=== PATIENT | female | born 1980 | race Caucasian/White ===

== ENCOUNTER 2017-11-18 11:07 | Emergency (ER) | payer MEDICAID, SELFPAY ==
[2017-11-18 11:08] VITALS: BP 112/64; PULSE 70; RESP 16; TEMP 36.8; O2SAT 100; BMI 25.1
--- NOTE | 2017-11-18 12:25 | US_ITS ---
STUDY: FIRST TRIMESTER OBSTETRICAL ULTRASOUND REASON FOR EXAM: Female, 37 years old. Cramping. LMP: October 06, 2017. TECHNIQUE: Transvaginal PRIOR ULTRASOUND: None. FINDINGS: There is visualization of a single gestational sac in a normal intrauterine position. The gestational sac shape is within normal limits. There is a visualized yolk sac. The yolk sac measures 3 mm. The placenta is non-visualized. Irregular sonolucency along the inferior margin of the gestational sac consistent with a small subchorionic hemorrhage. There is visualization of a live embryo. The crown-rump length (CRL) measures 1.6 cm, indicating an estimated gestational age (EGA) of 8 weeks, 0 days. There is demonstrated cardiac activity with a heart rate of 164 bpm. The estimated gestation age (EGA) by LMP is 6 weeks, 1 days. The estimated date of delivery (ANGELITO) by LMP is July 13, 2018. The estimated gestation age (EGA) by US is 8 weeks, 0 days. The estimated date of delivery (ANGELITO) by US is June 30, 2018. The anteverted uterus measures 10.2 x 7.6 x 5.9 cm. There is no demonstrated uterine fibroid. The cervix is closed. The right ovary measures 2.6 x 1.9 x 1.8 cm. There is no right ovarian cyst. There is no visualized right adnexal mass or complex lesion. The left ovary measures 2.3 x 2.7 x 1.7 cm. There is no left ovarian cyst. There is no visualized left adnexal mass or complex lesion. There is no fluid in the cul de sac. US/Transvaginal w/Preg US IMPRESSION: 1. Single living intrauterine with estimated gestational age of 8 weeks, 0 days. Estimated date of delivery by today's study is June 30, 2018. 2. Small subchorionic hemorrhage at the inferior margin of the gestational sac. 3. The ovaries are unremarkable. Electronically Signed: Geovanny Leyva MD at 13:54 EDT , Service support ,
[2017-11-18 12:42] LABS: Absolute Lymphocyte Count 2.44 X10^3/ul (0.83-4.51); Absolute Neutrophil Count 5.3 X10^3/uL (2.0-7.7); Basophil# 0.04 X10^3/uL; Basophil% 0.5 % (0-1); Eosinophils% 1.2 % (0-5); Hematocrit 38.8 % (37-47); Hemoglobin 12.9 g/dl (12.0-15.0); Lymphocyte # 2.44 X10^3/ul (4.0); Lymphocyte % 28.3 % (19-41); Mean Corp Hgb Conc 33.2 g/gl (32-36); Mean Corpuscular Hgb 29.1 pg (27.0-32.0); Mean Corpuscular Volume 87.6 fL (81-99); Mean Platelet Vol. 8.8 fl (6.2-12.0); Monocyte% 8.1 % (0-10); Neutrophil # 5.32 X10^3/uL (2.7-7.7); Neutrophil % 61.8 % (47-70); POSITIVE COUNT NO; POSITIVE DIFFERENTIAL NO; POSITIVE MORPHOLOGY NO; Platelet Count 270 K/mm3 (150-450); RBC Distribution Width CV 13.5 % (11.6-14.6); RBC Distribution Width SD 43.3 fl (35.1-43.9); Red Blood Count 4.43 M/mm3 (4.2-5.4); White Blood Count 8.6 K/mm3 (4.4-11.0)
[2017-11-18 12:52] LABS: Mucous, Urine 0 SEEN /hpf (<or=2+); Red Blood Cells-Urine 0 SEEN /hpf (0-5)
[2017-11-18] MEDS: 0.9% Normal Saline 1,000 ML 1000 ML IV (12:54)
[2017-11-18 12:56] LABS: Color, Urine Yellow (Yellow); Glucose, Dipstick Normal (Normal); Ketone-Dipstick Negative (Negative); Leukocyte Esterase-Dipstick 25 /ul (Negative); Nitrite-Dipstick Negative (Negative); Occult Blood-Urine Negative /ul (Negative); Protein-Dipstick Negative (Negative); Urine Bilirubin Dipstick Negative (Negative); Urine Clarity Sl. Cloudy (Clear); Urine Urobilinogen Normal (Normal)
[2017-11-18 13:06] LABS: Bacteria 1+ /hpf (None Seen); Squamous Epithelial Cells - UA 5-10 SEEN /hpf (5-10); White Blood Cells 0-5 SEEN /hpf (0-5)
[2017-11-18 13:09] LABS: ALB/GLOB Ratio 0.9 RATIO (0.9-2.4); AST(SGOT) 10 U/L (15-37); Alanine Aminotransfer ALT/SGPT 19 U/L (13-56); Albumin, Serum 3.5 g/dL (3.2-5.0); Alkaline Phosphatase 60 U/L (45-117); Anion Gap 7 (5-15); BUN 6 mg/dL (7-18); BUN/Creat Ratio 13.8 RATIO (10-20); Calcium,Total 8.9 mg/dL (8.5-10.1); Chloride 106 mmol/L (98-107); Creatinine, Serum 0.43 mg/dL (0.55-1.02); EST Glomerular Filtration Rate 173 mL/min (>60); Est Glom Filt Rate - Afr Amer 209 mL/min (>60); Estimated Creatinine Clearance 146.74 ml/min; Globulin 3.7 g/dL (2.2-4.2); Glucose 81 mg/dL (74-106); Potassium 3.8 mmol/L (3.5-5.1); Protein, Total 7.2 g/dL (6.4-8.2); Sodium Level 139 mmol/L (136-145)
--- NOTE | 2017-11-18 14:30 | ED.DCSUM_ITS ---
- ER Visit Summary Date of Service: 11/18/17 Chief Complaint: [ and abdominal pain] History of Present Illness: The patient is a 37 F [who presents the emergency department with 2 days of lower abdominal cramping bilateral. It has been intermittent she has had occasional vomiting for the last few weeks she did have a home test that was positive her last menstrual cycle was October 06, 2017 she is . No vaginal bleeding no dysuria or hematuria she has had some frequency. She has an appointment with Dr. Coelho on December 01] Physical Examination: [] WN WD NAD PERRL EOMI MMM NECK supple and nontender, no masses RRR no murmur rub or gallop, no peripheral edema, symmetric radial pulses CTAB no respiratory distress ABDOMEN is soft mild tenderness in the bilateral pelvis, normal bowel sounds, no distension, no rebound or guarding SKIN is warm and dry no rashes Alert and Oriented x3, CN II-XII in tact, no motor or sensory deficits, gait normal No lymphadenopathy Test Results: [] Emergency Department Course and Treatment: [HCG was 69,000. Urine did not appear infected. Other labs were unremarkable. Ultrasound showed single IUP at 6 weeks and 1 day. There was a small subchorionic hemorrhage. I will place the patient on pelvic rest until she follows up with Dr. Coelho.] Treatment Plan: [] Disposition: ] Impression: [First trimester with subchorionic hemorrhage] This note was generated with [employer] dictation software. It may contain incorrect words, spelling, and punctuation that were not noted in review of the chart prior to signing ED Disposition - Plan for ED Patient: Chief Complaint: Abd Pain Referrals: Orestes Lincoln DO [Primary Care Provider] -
[2017-11-18 14:40] LABS: Chlamydia Trachomatis by PCR Negative (Negative); Neisserai gonorrhoeae by PCR Negative (Negative); Probe Check PASS; Sample Adequacy Control PASS; Specimen Processing Control PASS
--- NOTE | 2017-11-18 14:40 | ED.DEP ---
ED Disposition - Plan for ED Patient: Chief Complaint: Abd Pain Instructions: : Your First Trimester Changes Referrals: Sushil Bautista [STAFF PHYSICIAN] - 3-5 Days Additional Instructions: Pelvic Rest No lifting greater than 10 lbs. No sex until follow up wit hob small subchorionic hemorrhage on ultrasound
== END 2017-11-18 14:56 | disposition home or self-care (01) ==
PROVIDERS: Emergency Provider Emergency Medicine; Family Provider Student in an Organized Health Care Education/Training Program; PCP Student in an Organized Health Care Education/Training Program
DX: O20.9 Hemorrhage in early pregnancy, unspecified (principal); O09.521 Supervision of elderly multigravida, first trimester; O21.9 Vomiting of pregnancy, unspecified; O99.331 Smoking (tobacco) complicating pregnancy, first trimester; Z3A.01 Less than 8 weeks gestation of pregnancy
CPT/HCPCS: 76817; 80053; 81001; 84702; 85025; 87491; 87591; 99283; A4216

== ENCOUNTER 2017-11-29 06:57 | Emergency (ER) | payer MEDICAID, SELFPAY ==
[2017-11-29 06:58] VITALS: BP 130/77; PULSE 85; RESP 18; TEMP 36.5; O2SAT 100; BMI 26.8
--- NOTE | 2017-11-29 07:45 | ED.DCSUM_ITS ---
- ER Visit Summary Date of Service: 11/29/17 Chief Complaint: [] 8 week , persistent intermittent pelvicl cramps History of Present Illness: The patient is a 37 F [] patient is 8 weeks single live IUP by ultrasound on November 18, she has persistent intermittent abdominal cramps in the low pelvic area since onset of . She has had no vomiting no fever normal urinary and bowel habits, no vaginal bleeding she was seen at that time and found to have as above nothing has really changed except the abdominal cramps in the lower pelvic area have persisted this morning she came in for evaluation she is not taking for the pain such as Tylenol she has had no bleeding no urinary symptoms she is no history of ectopic or PID Physical Examination: [] Resting comforting the bed her vital signs are within normal range head neck chest unremarkable abdomen is very soft there is no tenderness rebound guarding organomegaly any area the backs unremarkable upper lower extremity unremarkable her suprapubic area is unremarkable these cramps seem to come and go she absolutely adamantly denies bleeding or discharge we discussed pelvic exam and she deferred the pelvic exam She did have an ultrasound as above that showed single live IUP 8 weeks of explained to the is no indication to repeat an ultrasound, we will check UA Test Results: [] Emergency Department Course and Treatment: [] UA is unremarkable we did review the ultrasound reports as above, explained all the above to her 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 It may contain incorrect words, spelling, and punctuation that were not noted in review of the chart prior to signing ED Disposition - Plan for ED Patient: Chief Complaint: Referrals: Orestes Lincoln DO [Primary Care Provider] -
[2017-11-29 07:55] LABS: Bacteria 0 SEEN /hpf (None Seen); Mucous, Urine 0 SEEN /hpf (<or=2+); Red Blood Cells-Urine 0 SEEN /hpf (0-5); White Blood Cells 0 SEEN /hpf (0-5)
[2017-11-29 08:04] LABS: Color, Urine Yellow (Yellow); Glucose, Dipstick Normal (Normal); Ketone-Dipstick Negative (Negative); Leukocyte Esterase-Dipstick Negative /ul (Negative); Nitrite-Dipstick Negative (Negative); Occult Blood-Urine Negative /ul (Negative); Protein-Dipstick Negative (Negative); Urine Bilirubin Dipstick Negative (Negative); Urine Clarity Clear (Clear); Urine Urobilinogen Normal (Normal); Urine pH 6.5 (5.0 - 8.0)
[2017-11-29 08:11] LABS: Squamous Epithelial Cells - UA 0-5 SEEN /hpf (5-10)
--- NOTE | 2017-11-29 08:34 | ED.DEP ---
ED Disposition - Plan for ED Patient: Chief Complaint: Instructions: ED Miscarriage Poss Referrals: Orestes Lincoln DO [Primary Care Provider] -
== END 2017-11-29 08:44 | disposition home or self-care (01) ==
PROVIDERS: Emergency Provider Emergency Medicine; Family Provider Student in an Organized Health Care Education/Training Program; PCP Student in an Organized Health Care Education/Training Program
DX: O20.0 Threatened abortion (principal); Z3A.08 8 weeks gestation of pregnancy
CPT/HCPCS: 81001; 87077; 87086; 87088; 99282

== ENCOUNTER 2018-02-16 01:10 | Outpatient (CLI) | payer MEDICAID, SELFPAY ==
[2018-02-16 02:08] LABS: Bacteria 0 SEEN /hpf (None Seen); Mucous, Urine 0 SEEN /hpf (<or=2+); Red Blood Cells-Urine 0 SEEN /hpf (0-5); Squamous Epithelial Cells - UA 0 SEEN /hpf (5-10); White Blood Cells 0 SEEN /hpf (0-5)
[2018-02-16 02:09] LABS: Color, Urine Yellow (Yellow); Glucose, Dipstick Normal (Normal); Ketone-Dipstick Negative (Negative); Leukocyte Esterase-Dipstick Negative /ul (Negative); Nitrite-Dipstick Negative (Negative); Occult Blood-Urine Negative /ul (Negative); Protein-Dipstick Negative (Negative); Urine Bilirubin Dipstick Negative (Negative); Urine Clarity Clear (Clear); Urine Urobilinogen Normal (Normal); Urine pH 6.5 (5.0 - 8.0)
[2018-02-16 02:39] VITALS: BMI 28.5
--- NOTE | 2018-02-16 07:58 | OB.TRI.HP_ITS ---
History of Present Illness Reason For Visit: R/O LABOR Allergies No Known Allergies Allergy (Verified 11/29/17 06:58) Laboratory Studies: Laboratory Tests 02/16/18 Range/Units 02:00 Urine Color Yellow (Yellow) Urine Clarity Clear (Clear) Urine pH 6.5 (5.0 - 8.0) Ur Specific [place] 1.010 (1.002-1.030) Urine Protein Negative (Negative) mg/dl Urine Glucose (UA) Normal (Normal) mg/dl Urine Ketones Negative (Negative) mg/dl Urine Occult Blood Negative (Negative) /ul Urine Nitrite Negative (Negative) Urine Bilirubin Negative (Negative) mg/dL Urine Urobilinogen Normal (Normal) mg/dl Ur Leukocyte Esterase Negative (Negative) /ul Urine RBC 0 SEEN (0-5) /hpf Urine WBC 0 SEEN (0-5) /hpf Ur Squamous Epith Cells 0 SEEN (5-10) /hpf Urine Bacteria 0 SEEN (None Seen) /hpf Urine Mucus 0 SEEN (<or=2+) /hpf NST - FHR Rate Baby A Baseline: 130S Variability:: Minimal NST Reactive:: Appropriate for gestational age Uterine Activity:: IRREGULAR Impression/Plan 37YO @ @ 20 WEEKS R/O LABOR - FALSE LABOR 1) CERVICAL EXAM- CLOSED 2) CONTRACTIONS RESOLVED AFTER PO HYDRATION 3) DC HOME
== END 2018-02-16 04:00 | disposition home or self-care (01) ==
LOC: WPOUT 01:41 → WP 01:41
PROVIDERS: Family Provider Student in an Organized Health Care Education/Training Program; PCP Student in an Organized Health Care Education/Training Program; Visit Provider Obstetrics & Gynecology
DX: O09.522 Supervision of elderly multigravida, second trimester (principal); Z3A.20 20 weeks gestation of pregnancy
CPT/HCPCS: 59025; 59050; 81001; 99218; G0378

== ENCOUNTER 2018-03-28 23:20 | Outpatient (CLI) | payer MEDICAID, SELFPAY ==
[2018-03-28 23:35] VITALS: BMI 28.1
[2018-03-29 00:24] LABS: Color, Urine Yellow (Yellow); Glucose, Dipstick Normal (Normal); Ketone-Dipstick 5 mg/dl (Negative); Leukocyte Esterase-Dipstick 25 /ul (Negative); Nitrite-Dipstick Negative (Negative); Occult Blood-Urine 25 /ul (Negative); Protein-Dipstick Negative (Negative); Urine Bilirubin Dipstick Negative (Negative); Urine Clarity Sl. Cloudy (Clear); Urine Urobilinogen Normal (Normal)
[2018-03-29] MEDS: Lactated Ringers 1,000 ML 999 ML IV (00:57)
[2018-03-29] MEDS: Acetaminophen 500 MG Tablet 1000 MG PO (00:57)
[2018-03-29 01:04] LABS: Absolute Lymphocyte Count 3.09 X10^3/ul (0.83-4.51); Absolute Neutrophil Count 9.9 X10^3/uL (2.0-7.7); Basophil# 0.04 X10^3/uL; Basophil% 0.3 % (0-1); Eosinophils% 2.7 % (0-5); Hematocrit 35.2 % (37-47); Hemoglobin 12.1 g/dl (12.0-15.0); Lymphocyte # 3.09 X10^3/ul (4.0); Mean Corp Hgb Conc 34.4 g/gl (32-36); Mean Corpuscular Hgb 31.3 pg (27.0-32.0); Mean Corpuscular Volume 91.2 fL (81-99); Mean Platelet Vol. 8.8 fl (6.2-12.0); Monocyte# 1.12 X10^3/uL; Monocyte% 7.6 % (0-10); Neutrophil # 9.91 X10^3/uL (2.7-7.7); Neutrophil % 67.6 % (47-70); Platelet Count 289 K/mm3 (150-450); RBC Distribution Width CV 12.9 % (11.6-14.6); RBC Distribution Width SD 42.4 fl (35.1-43.9); Red Blood Count 3.86 M/mm3 (4.2-5.4); White Blood Count 14.7 K/mm3 (4.4-11.0)
[2018-03-29 01:06] LABS: POSITIVE COUNT NO; POSITIVE DIFFERENTIAL NO; POSITIVE MORPHOLOGY NO
[2018-03-29 01:35] LABS: Bacteria 0 SEEN /hpf (None Seen)
[2018-03-29 01:45] LABS: Calcium Oxalate Crystals Ur 1+ /hpf (<or=2+); Red Blood Cells-Urine 0-5 SEEN /hpf (0-5); Squamous Epithelial Cells - UA 5-10 SEEN /hpf (5-10); White Blood Cells 0-5 SEEN /hpf (0-5)
[2018-03-29 01:46] LABS: Mucous, Urine 1+ /hpf (<or=2+)
[2018-03-29 02:03] LABS: Fetal Fibronectin Negative
--- NOTE | 2018-03-31 18:51 | OB.TRI.NOTE ---
History of Present Illness Date of Service: 03/28/18 Was patient seen by the physician?: No Reason For Visit: R/O LABOR Date of Service: 03/28/18 Final ANGELITO: 06/30/18 Gestational age: 26 5/7 Allergies No Known Allergies Allergy (Verified 03/28/18 23:36) Laboratory Studies: Laboratory Tests 03/29/18 03/29/18 03/28/18 Range/Units 01:05 00:52 23:34 WBC 14.7 H (4.4-11.0) K/mm3 RBC 3.86 L (4.2-5.4) M/mm3 Hgb 12.1 (12.0-15.0) g/dl Hct 35.2 L (37-47) % MCV 91.2 (81-99) fL MCH 31.3 (27.0-32.0) pg MCHC 34.4 (32-36) g/gl RDW 12.9 (11.6-14.6) % RDW Differential 42.4 (35.1-43.9) fl Plt Count 289 (150-450) K/mm3 MPV 8.8 (6.2-12.0) fl Immature Gran % (Auto) 0.800 (0.0-0.9) % Neut % (Auto) 67.6 (47-70) % Lymph % (Auto) 21.0 (19-41) % [place] % (Auto) 7.6 (0-10) % Eos % (Auto) 2.7 (0-5) % Baso % (Auto) 0.3 (0-1) % Absolute Neuts (auto) 9.9 H (2.0-7.7) X10^3/uL Absolute Lymphs (auto) 3.09 (0.83-4.51) X10^3/ul Total Counted Not Reportable Urine Color Cancelled (Yellow) Urine Clarity Cancelled (Clear) Urine pH Cancelled (5.0 - 8.0) Ur Specific [place] Cancelled (1.002-1.030) U Specif Grav (Refrac) Cancelled Urine Protein Cancelled (Negative) mg/dl Urine Glucose (UA) Cancelled (Normal) mg/dl Urine Ketones Cancelled (Negative) mg/dl Urine Occult Blood Cancelled (Negative) /ul Urine Nitrite Cancelled (Negative) Urine Bilirubin Cancelled (Negative) mg/dL Urine Urobilinogen Cancelled (Normal) mg/dl Ur Leukocyte Esterase Cancelled (Negative) /ul Urine RBC Cancelled (0-5) /hpf Urine WBC Cancelled (0-5) /hpf Ur Squamous Epith Cells Cancelled (5-10) /hpf Ur Transition Epith Cell Cancelled Ur Renal Epithelial Cell Cancelled Calcium Oxalate Crystal Cancelled (<or=2+) /hpf Uric Acid Crystals Cancelled Triple Phos Crystals Cancelled Other Crystals Cancelled Amorphous Sediment Cancelled Urine Bacteria Cancelled (None Seen) /hpf Hyaline Casts Cancelled Fine Granular Casts Cancelled Coarse Granular Casts Cancelled Waxy Casts Cancelled RBC Casts Cancelled WBC Casts Cancelled Urine Mucus Cancelled (<or=2+) /hpf Urine Trichomonas Cancelled Urine Yeast Cancelled Fibronectin Negative 03/28/18 Range/Units 23:29 WBC (4.4-11.0) K/mm3 RBC (4.2-5.4) M/mm3 Hgb (12.0-15.0) g/dl Hct (37-47) % MCV (81-99) fL MCH (27.0-32.0) pg MCHC (32-36) g/gl RDW (11.6-14.6) % RDW Differential (35.1-43.9) fl Plt Count (150-450) K/mm3 MPV (6.2-12.0) fl Immature Gran % (Auto) (0.0-0.9) % Neut % (Auto) (47-70) % Lymph % (Auto) (19-41) % [place] % (Auto) (0-10) % Eos % (Auto) (0-5) % Baso % (Auto) (0-1) % Absolute Neuts (auto) (2.0-7.7) X10^3/uL Absolute Lymphs (auto) (0.83-4.51) X10^3/ul Total Counted Urine Color Yellow (Yellow) Urine Clarity Sl. Cloudy (Clear) Urine pH 5.0 (5.0 - 8.0) Ur Specific [place] 1.030 (1.002-1.030) U Specif Grav (Refrac) Urine Protein Negative (Negative) mg/dl Urine Glucose (UA) Normal (Normal) mg/dl Urine Ketones 5 H (Negative) mg/dl Urine Occult Blood 25 H (Negative) /ul Urine Nitrite Negative (Negative) Urine Bilirubin Negative (Negative) mg/dL Urine Urobilinogen Normal (Normal) mg/dl Ur Leukocyte Esterase 25 H (Negative) /ul Urine RBC 0-5 SEEN (0-5) /hpf Urine WBC 0-5 SEEN (0-5) /hpf Ur Squamous Epith Cells 5-10 SEEN (5-10) /hpf Ur Transition Epith Cell Ur Renal Epithelial Cell Calcium Oxalate Crystal 1+ (<or=2+) /hpf Uric Acid Crystals Triple Phos Crystals Other Crystals Amorphous Sediment Urine Bacteria 0 SEEN (None Seen) /hpf Hyaline Casts Fine Granular Casts Coarse Granular Casts Waxy Casts RBC Casts WBC Casts Urine Mucus 1+ (<or=2+) /hpf Urine Trichomonas Urine Yeast Fibronectin NST - FHR Rate Baby A Baseline: 125 bpm Variability:: Minimal Accelerations:: 10 x 10 Decelerations:: None NST Reactive:: Yes, Appropriate for gestational age FHR Category:: Category I Uterine Activity:: quiet Impression/Plan 26 5/7 weeks for threatened PTL no evidence of PTL or SROM d/c home w/ PTL precautions and f/u as scheduled or prn
--- OUTSIDE RECORDS SUMMARY | 2018-05-22 02:09 | XMS RPT_ITS ---
:1980 Author Organization OHIP Care Team Providers Name Role Phone DENISE SADLER ([facility]) Attending Unavailable DENISE SADLER ([facility]) Attending Unavailable DENISE SADLER ([facility]) Referring Unavailable DENISE SADLER ([facility]) Referring Unavailable DENISE SADLER ([facility]) Attending Unavailable DENA RESTREPO ([facility]) Attending Unavailable BRAYDEN OLSON Attending Unavailable KRYSTIN DARBY Attending Unavailable BRAYDEN OLSON Referring Unavailable DARIEL ARITA ([facility]) Attending Unavailable BRAYDEN OLSON Referring Unavailable ZACH WALKER ([facility]) Referring Unavailable KRYSTIN DARBY Attending Unavailable DARBY, KRYSTIN A Referring Unavailable DARIEL ARITA ([facility]) Attending Unavailable BRAYDEN OLSON Attending Unavailable DARBY, KRYSTIN A Referring Unavailable DARBY, KRYSTIN A Attending Unavailable DARBY, KRYSTIN A Referring Unavailable BRAYDEN OLSON Referring Unavailable WISWELL, AUGUSTINE Attending Unavailable HAMPTON, ORESTES L Referring Unavailable DARBY, KRYSTIN A Attending Unavailable WISWELL, AUGUSTINE Referring Unavailable WISWELL, AUGUSTINE Attending Unavailable DARBY, KRYSTIN A Attending Unavailable WISWELL, AUGUSTINE Referring Unavailable NEYHART SCHMID, MEAGAN Attending Unavailable WISWELL, AUGUSTINE Referring Unavailable NEYHART SCHMID, MEAGAN Referring Unavailable Hampton, Orestes Primary Care Unavailable Sarita Mccollum Attending Unavailable Sarita Mccollum Referring Unavailable Hampton, Orestes Primary Care Unavailable Chely Duron Attending Unavailable Neydanielat-Schmid, Meagan Attending Unavailable Hampton, Orestes Primary Care Unavailable Dena Restrepo Attending Unavailable Hampton, Orestes Primary Care Unavailable Dena Restrepo Referring Unavailable PROBLEMS PROBLEMS DATE TYPE CONDITION / CODE ATTENDING STATUS SOURCE 04/09/2018 Active 28 weeks gestation Active [facility] Main Z3A.28(ICD-10) [place] Repository 04/09/2018 Active Supervision of Active [facility] other high risk [facility] Main pregnancies, third [place] trimester / Repository O09.893(ICD-10) 04/09/2018 Active Unspecified blood [facility] [place] type, rh negative / Clinic Main Z67.91(ICD-10) [place] Repository 01/21/2018 Active 17 weeks gestation NA Active [facility] Main Z3A.17(ICD-10) [place] Repository 12/01/2017 Active Supervision of Active [facility] elderly [facility] Main multigravida, [place] unspecified Repository trimester / O09.529(ICD-10) 12/23/2017 Active Encounter for Active [facility] general adult [facility] Main medical examination [place] without abnormal Repository findings / Z00.00(ICD-10) 12/23/2017 Active Encounter for Active [facility] screening Clinic Main for nuchal [place] translucency / Repository Z36.82(ICD-10) 12/23/2017 Active Encounter for [facility] [place] Main screening, [place] unspecified / Repository Z36.9(ICD-10) 12/23/2017 Active 13 weeks gestation NA Active [facility] of / Clinic Main Z3A.13(ICD-10) [place] Repository 01/13/2018 Unknown O26.891 - Other Jwayyed, Active [place] [facility] related conditions, Hospital first trimester / Repository O26.891(ICD-10) 06/05/2017 Active Pain due to NA Active [facility] genitourinary [facility] Main prosthetic devices, [place] implants and Repository grafts, initial encounter / T83.84XA(ICD-10) 05/13/2017 Active Unknown / DENISE SADLER Active [facility] UNK(Unknown) ([employer]) [facility] Main [place] Repository PROCEDURES PROCEDURES No Procedure Records FoundRESULTS RESULTS PROGRESS Observed: 04/09/2018 Status: COMPLETED Source: [facility] [place] 10:29 AM [facility] REPOSITORY HNO ID: [id number] Author: Sadie Dukes RN Service: (none) Author Type: (none) Type: Progress Notes Filed: 04/09/2018 10:30 AM Note Text: Juan Yañez 37 year old is here for her injection of Rhophylac. Juan Yañez is RH Negative Rhophylac was given without incident. See immunizations for details of immunizations administered today. Provider Meagan Schmid MD was present in office at time of injection Juan Yañez was given her Rhophylac pocket card. Sadie Dukes RN 50G, 1HR GEST. Collected: 04/09/2018 Status: F Source: [facility] [place] GSCRN 10:11 AM [facility] REPOSITORY TYPE CODE TESTS RESULT OUT OF REFERENCE UNITS RANGE LAB GLUP 74-134 mg/dL Glucose 132 Screen, Preg Result Comment: [place] [employer] ([place]) guidelines state a gestational diabetes mellitus positive screen is made, in women not previously diagnosed with overt diabetes, when the 1 hr plasma glucose level is equal to or above 140 mg/dL. The [facility] recommends a 135 mg/dL cutoff. Performed By: #### GLTGST #### [facility] [address] [address] CBC AND DIFFERENTIAL Collected: 04/09/2018 Status: F Source: [facility] [place] 10:11 AM [facility] REPOSITORY TYPE CODE TESTS RESULT OUT OF REFERENCE UNITS RANGE LAB WBC 3.70-11.00 k/uL WBC High 15.39 LAB RBC 3.90-5.20 m/uL RBC Low 3.84 LAB HGB 11.5-15.5 g/dL Hemoglobin 11.9 LAB HCT 36.0-46.0 % Hematocrit 37.1 LAB MCV 80.0-100.0 fL MCV 96.6 LAB MCH 26.0-34.0 pG MCH 31.0 LAB MCHC 30.5-36.0 g/dL MCHC 32.1 LAB RDWCV 11.5-15.0 % RDW-CV 12.9 LAB PLTCT 150-400 k/uL Platelet Count 318 LAB MPV 9.0-12.7 fL MPV 10.0 LAB ANEUT % Neut% 83.5 LAB AANEUT 1.45-7.50 k/uL Abs Neut High 12.85 LAB ALYMP % Lymph% 11.3 LAB AALYMP 1.00-4.00 k/uL Abs Lymph 1.74 LAB AMONO % Gray% 3.5 LAB AAMONO <0.87 k/uL Abs Gray 0.54 LAB AEOS % Eosin% 1.7 LAB AAEOS <0.46 k/uL Abs Eosin 0.26 LAB ABASO % Baso% 0.0 LAB AABASO <0.11 k/uL Abs Baso 0.00 LAB RBCMOR Red Cell Morph SEE COMMENT Result Comment: Unremarkable LAB PLTEST Platelet Platelet Estimate estimate adequate LAB DTYP DTYPE Manual Diff Performed By: #### CBCDIF #### [facility] [address] [id number] ANTIBODY SCREEN Collected: 04/09/2018 Status: F Source: [facility] [place] 10:10 AM [facility] REPOSITORY TYPE CODE TESTS RESULT OUT OF REFERENCE UNITS RANGE LAB % Antibody NEG Screen Performed By: #### ASCR #### [facility] [address] [id number] CNPN Observed: 04/06/2018 Status: COMPLETED Source: [facility] [place] 12:00 AM [facility] REPOSITORY Telephone (HIOB) JUAN YAÑEZ ([id number]) 1980 F Date Time Provider Department 04/06/18 [employer] CARLOS During your visit today, we recorded the following information about you: Deana Lund RN 04/06/2018 3:02 PM Addendum Call placed to patient to advise her that SQ auto-injectors are temporarily unavailable. Pending a short script of the generic IM form, and patient will bring them to the office for nurse visits if the RN at work cannot administer it for her. Augustine Sena MD 04/06/2018 10:07 AM Signed Signed order, thanks Allergies As of Date: 04/06/2018 (No Known Allergies) Date Reviewed: 04/05/2018 Reviewed by: Krystin Darby - Fully Assessed Reason for Visit: Care Coordination [3491] Cmt: riky Order(s):HYDROXYprogesterone caproate (RIKY) 250 mg/mL injectionInject 1 mL intramuscularly once each week.Disp: 4 mLRfl: 0 Prescriptions as of 04/06/2018 Sig: ACETAMINOPHEN 325 MG TABLET Take 650 mg by mouth every 6 * TUMS ORAL Take by mouth as needed. HYDROXYPROGESTERONE(PF)(PREG * Inject 1.1 mL subcutaneously * HYDROXYPROGESTERONE CAPROATE * Inject 1 mL intramuscularly o* NICOTINE 7 MG/24 HR DAILY TRA* Apply 1 Patch as directed ivonne* ORAL Take by mouth. Problem List As Of Date 04/06/2018 Noted Resolved Supervision of other high-risk [O09.8*INVALID FOR*05/20/2010 General counseling for prescription of oral con*INVALID FOR*10/05/2012 Anxiety and depression [F41.9, F32.9] INVALID FOR* Fatigue [R53.83] INVALID FOR*12/23/2017 Irregular bleeding [N92.6] INVALID FOR*12/23/2017 Depression [F32.9] INVALID FOR* More... Tobacco use disorder complicating , ch*INVALID FOR* More... Marijuana use [F12.90] INVALID FOR* More... Antepartum multigravida of advanced maternal ag*INVALID FOR* Group B streptococcal bacteriuria [R82.71] INVALID FOR* More... Supervision of other high risk pregnancies, fir*INVALID FOR* Rh negative status during [O09.899, Z*INVALID FOR* More... Rubella non-immune status, antepartum [O99.89, *INVALID FOR* History of delivery [Z87.51] INVALID FOR* More... Prescriptions ordered this encounter Disp Refills Start End HYDROXYPROGESTERONE CAPROATE (PREGNA* 4 mL 0 04/06/2018 Cmt: Short temporary script of IM form while Auto injector is unavailable. Deliver to patient's home. Route: INTRAMUSCULA Sig: Inject 1 mL intramuscularly once each week. Encounter Status:Closed by OLIVER BULL RN on 04/06/18 PROGRESS Observed: 04/05/2018 Status: COMPLETED Source: [facility] [place] 9:28 AM [facility] REPOSITORY HNO ID: [id number] Author: Krystin Darby Service: (none) Author Type: Physician Type: Progress Notes Filed: 04/05/2018 9:42 AM Note Text: A calvo intrauterine has been noted. EGA = 27w5d Estimated Date of Delivery: 06/30/18 AGA The heart rate is regular without dysrhythmias and falls within the normal range for gestational age. Normal cervical length and no dynamic changes are noted The amniotic fluid volume appears normal and there is no evidence of hydrops. The placenta is fundal. No maternal structural anatomical uterine of adnexal abnormalities are noted. The limitations of ultrasound have been addressed with the patient. RECOMMENDATIONS: - Follow up ultrasound as clinically indicated - kick counts - On 17 P - Quit smoking FIBRONECTIN Collected: 03/29/2018 Status: F Source: [facility] 1:05 AM [facility] REPOSITORY TYPE CODE TESTS RESULT OUT OF RANGE REFERENCE UNITS LAB L205.0100 Normal fFN Negative Performed By: #### L205.0000, M100.0650 #### [facility] [address] [place], [address] CBC W/DIFF, AUTOMATED Collected: 03/29/2018 Status: F Source: [place] 12:52 AM [facility] REPOSITORY TYPE CODE TESTS RESULT OUT OF RANGE REFERENCE UNITS LAB L100.1000 4.4-11.0 K/mm3 High WBC 14.7 LAB L100.1200 4.2-5.4 M/mm3 Low RBC 3.86 LAB L100.1300 12.0-15.0 g/dl Normal HGB 12.1 LAB L100.1400 37-47 % Low HCT 35.2 LAB L100.1500 81-99 fL Normal MCV 91.2 LAB L100.1600 27.0-32.0 pg Normal MCH 31.3 LAB L100.1700 32-36 g/gl Normal MCHC 34.4 LAB L100.1810 11.6-14.6 % Normal RDW CV 12.9 LAB L100.1820 35.1-43.9 fl Normal RDW SD 42.4 LAB L100.1900 150-450 K/mm3 Normal PLT 289 LAB L100.2000 6.2-12.0 fl Normal MPV 8.8 LAB L100.2100 47-70 % Normal NEUT% 67.6 LAB L100.2200 19-41 % Normal LY% 21.0 LAB L100.2300 0-10 % Normal MONO% 7.6 LAB L100.2400 0-5 % Normal EO% 2.7 LAB L100.2500 0-1 % Normal BASO% 0.3 LAB L100.2550 0.0-0.9 % Normal IM GRAN % 0.800 Result Comment: IG% - Immature Granulocytes (promyelocytes, myelocytes and metamyelocytes) > 1% indicates that a LEFT SHIFT is Present. LAB L100.2620 2.0-7.7 X10 3/uL High Absolute Neut 9.9 LAB L100.2720 0.83-4.51 X10 3/ul Normal Absolute Lymph 3.09 Performed By: #### L100.0100 #### [facility] [address] [place], [place], [id number] URINALYSIS, ROUTINE Collected: 03/28/2018 Status: F Source: [place] ([place]IPST[place]) 11:29 PM [facility] REPOSITORY Order Comment: How was Urine Obtained? BEDSPREAD CUTTER TO SPECIFY TYPE CODE TESTS RESULT OUT OF RANGE REFERENCE UNITS LAB L400.3000 Yellow COLOR Normal Yellow LAB L400.3050 Clear Normal CLARITY Sl. Cloudy LAB L400.3200 Normal mg/dl Normal GLUCOSE, UR Normal LAB L400.3300 Negative mg/dL Normal BILIRUBIN URINE Negative LAB L400.3400 Negative mg/dl High 5 KETONE UR LAB L400.3465 1.002-1.030 Normal SP.GR. DIPSTX 1.030 LAB L400.3550 5.0 - 8.0 pH UR Normal 5.0 LAB L400.3600 Negative mg/dl PROT Normal DIPSTX Negative LAB L400.3700 Normal mg/dl Normal UROBILI Normal LAB L400.3750 Negative Normal NITRITE UR Negative LAB L400.3780 Negative /ul High 25 OCCULT BLOOD-UR LAB L400.3800 Negative /ul High LEUK 25 ESTERASE Performed By: #### L400.2011, L400.4000 #### [facility] [address] [place], [place], [id number] URINE MICROSCOPIC Collected: 03/28/2018 Status: F Source: [place] 11:29 PM [facility] REPOSITORY Order Comment: How was Urine Obtained? BEDSPREAD CUTTER TO SPECIFY TYPE CODE TESTS RESULT OUT OF RANGE REFERENCE UNITS LAB L400.4050 0-5 /hpf Normal WBC 0-5 SEEN LAB L400.4100 0-5 /hpf Normal RBC-UA 0-5 SEEN LAB L400.4150 5-10 /hpf Normal SQUAM EPI 5-10 SEEN LAB L400.4300 None Seen /hpf Normal BACTERIA 0 SEEN LAB L400.4350 <or=2+ /hpf Normal MUCUS, URINE 1+ LAB L400.4700 <or=2+ /hpf CA Normal OX CRYSTAL 1+ Performed By: #### L400.2010, L400.4000 #### [facility] [address] [place], [place], [id number] Observed: 03/28/2018 Status: F Source: [facility] CULTURE, URINE 11:29 PM [facility] REPOSITORY Urine Culture ORGANISM 1: Mixed Gram Positive Organisms [place] Count 1000-10,000 MIX CULTURE Mixed contaminants. Submit a new specimen if indicated. Performed By: #### L205.0000, M100.0650 #### [facility] [address] [place], [address] PROGRESS Observed: 02/22/2018 Status: COMPLETED Source: [facility] [place] 3:45 PM [facility] REPOSITORY HNO ID: [id number] Author: Krystin Darby Service: (none) Author Type: Physician Type: Progress Notes Filed: 02/22/2018 3:48 PM Note Text: A calvo? fetus in utero with symmetric measurements Adequate growth (AGA). Estimated Date of Delivery: 06/30/18 EGA = 21w5d The anatomy appears normal. There are no evident malformations and /or effusions. No genetic markers are noted. The amniotic fluid volume is within normal limits. Normal cervical length without dynamic changes The sensitivity of ultrasound in the detection of malformations overall is approximately 35%. RECOMMENDATIONS: - Follow up ultrasound after 2 weeks for anatomy and cervical length - 17 P therapy - Quit smoking URINALYSIS, COMPLETE Collected: 02/16/2018 Status: F Source: [place] 2:00 AM [facility] REPOSITORY Order Comment: How was Urine Obtained? CLEAN CATCH TYPE CODE TESTS RESULT OUT OF RANGE REFERENCE UNITS LAB L400.3000 Yellow COLOR Normal Yellow LAB L400.3050 Clear Normal CLARITY Clear LAB L400.3200 Normal mg/dl Normal GLUCOSE, UR Normal LAB L400.3300 Negative mg/dL Normal BILIRUBIN URINE Negative LAB L400.3400 Negative mg/dl Normal KETONE UR Negative LAB L400.3465 1.002-1.030 Normal SP.GR. DIPSTX 1.010 LAB L400.3550 5.0 - 8.0 pH UR Normal 6.5 LAB L400.3600 Negative mg/dl PROT Normal DIPSTX Negative LAB L400.3700 Normal mg/dl Normal UROBILI Normal LAB L400.3750 Negative Normal NITRITE UR Negative LAB L400.3780 Negative /ul Normal OCCULT BLOOD-UR Negative LAB L400.3800 Negative /ul LEUK Normal ESTERASE Negative LAB L400.4050 0-5 /hpf WBC 0 Normal SEEN LAB L400.4100 0-5 /hpf 0 Normal RBC-UA SEEN LAB L400.4150 5-10 /hpf SQUAM 0 Normal EPI SEEN LAB L400.4300 None Seen /hpf 0 Normal BACTERIA SEEN LAB L400.4350 <or=2+ /hpf 0 Normal MUCUS, URINE SEEN Performed By: #### L400.0001 #### [facility] [address] [place], [address] PROGRESS Observed: 01/21/2018 Status: COMPLETED Source: [facility] [place] 11:16 AM [facility] REPOSITORY HNO ID: [id number] Author: Krystin Darby Service: (none) Author Type: Physician Type: Progress Notes Filed: 01/21/2018 11:18 AM Note Text: A calvo intrauterine has been noted. The heart rate is regular without dysrhythmias and falls within the normal range for gestational age. Estimated Date of Delivery: 06/30/18 EGA = 17w1d Evaluation of the cervix: Evaluation of the cervix has been performed by transvaginal ultrasound secondary to PTD at 35 weeks. The cervix measure 36.6 mm. No dynamic changes have been visualized. No sludge is noted near the cervix There is no evidence of hydrops. The amniotic fluid volume is in the normal range. The placenta is fundal. The limitations of ultrasound in detecting malformations and chromosomal anomalies has been addressed. RECOMMENDATIONS: - Follow up ultrasound after 2 weeks for anatomy and cervical length - 17 P therapy ALPHA FETO MATERNAL Collected: 01/21/2018 Status: F Source: [facility] [place] 10:55 AM [facility] REPOSITORY TYPE CODE TESTS RESULT OUT OF REFERENCE UNITS RANGE LAB PREINT Screen Negative Interp LAB AFPM View Note results in Scanned Documents link when available. Performed By: #### AFPMAT #### [facility] [address] [place], [place] [address] PROGRESS Observed: 01/21/2018 Status: COMPLETED Source: [facility] [place] 9:24 AM [facility] REPOSITORY HNO ID: [id number] Author: Brittney Manjarrez Ma Service: (none) Author Type: (none) Type: Progress Notes Filed: 01/21/2018 10:53 AM Note Text: 37 year old female here for INACTIVATED INFLUENZA VACCINE. 9637-2556 Season Patient is identified by name and date of : Yes [] CONTRAINDICATIONS color enhanced section Age less than 6 months? No Allergy to eggs, chicken, chicken feathers, or chicken dander? No Allergy to thimerosal (a preservative) or formaldehyde, gelatin? No History of severe reaction to any vaccine component or a previous dose of influenza vaccination? No History of Guillain-[place] Syndrome within 6 weeks after a previous influenza vaccine? No Patient is not moderately or severely ill? No Current temperature greater or equal to 100.4F? No History of Bone Marrow Transplant prior 6 months or solid organ transplant in the past 3 months ? No History of fainting after a prior injection or medical procedure? No- ? If patient has fainted in the past, the CDC recommends sitting or lying down for 15 minutes after the vaccination. [] VERIFICATION color enhanced section Was the answer Yes for any of the above contraindications? No contraindications present. Acceptable to proceed with vaccine. Patient/guardian agrees the above answers are true to the best of their knowledge? Yes Flu vaccine information sheet given? Yes See immunization activity in [facility] for details of immunizations adminstered today. Patient age: [age] year old For The 7576-2246 Flu Season 6-35 months old: Fluzone 0.25 ml - IM (Preservative Free) 3 years of age: Fluzone 0.5 ml - IM (Preservative Free) 3 years and older: Fluzone 0.5 ml- IM-(with Preservatives) 65+ years old: 2-49 years old Fluzone High-Dose 0.5 ml - IM (Preservative Free) FLUMIST- intranasal REMEMBER: If patient is less than 9 years of age and this is the first vaccine of Influenza to be received in any flu season, they should receive a second dose in one months time. PROGRESS Observed: 01/07/2018 Status: COMPLETED Source: [facility] [place] 10:32 AM [facility] REPOSITORY O ID: [id number] Author: Krystin Darby Service: (none) Author Type: Physician Type: Progress Notes Filed: 01/07/2018 10:35 AM Note Text: A calvo intrauterine has been noted. The heart rate is regular without dysrhythmias and falls within the normal range for gestational age. Estimated Date of Delivery: 06/30/18 EGA = 15w1d Evaluation of the cervix: Evaluation of the cervix has been performed by transvaginal ultrasound secondary to PTD at 35 weeks. The cervix measure 36.6 mm. No dynamic changes have been visualized. No sludge is noted near the cervix There is no evidence of hydrops. The amniotic fluid volume is in the normal range. The placenta is fundal. The limitations of ultrasound in detecting malformations and chromosomal anomalies has been addressed. Body mass index is 26.26 kg/m?. RECOMMENDATIONS: - Follow up ultrasound after 2 weeks for cervical length - 17 P after 16 weeks PROGRESS Observed: 01/06/2018 Status: COMPLETED Source: [facility] [place] 12:17 PM [facility] REPOSITORY HNO ID: [id number] Author: Dariel Bradshaw) Rolo Service: (none) Author Type: Risk Assessor Type: Progress Notes Filed: 01/06/2018 12:18 PM Note Text: CM - S: Juan Yañez presents for f/u ultrasound at 15w0d. She denies LOF, VB, DFM or cramping/contractions. But notes increased pelvic pressure and specifically increased bladder pressure. Reports that pain is worst with movement and position changes. O: See flow sheet Gen: A+O x 3, NAD Abd: NT x 4 quadrants, Neg CVAT Extremities: No edema in LE A/P: 15w0d IUP. Round Ligament Pain. RTO 1-2 Weeks for follow up. Call with LOF, VB, DFM or cramping/contractions. 1. Dysuria -Urine 10-dip negative for s/s of UTI -Patient to increase PO water hydration - UA DIP B/O Dariel Arita APRN.LUBNA TYPE AND SCR,PRENATL Collected: 12/23/2017 Status: F Source: [facility] [place] 3:46 PM [facility] REPOSITORY TYPE CODE TESTS RESULT OUT OF REFERENCE UNITS RANGE LAB %ABR O ABO/RH(D) NEGATIVE LAB % Antibody NEG Screen Performed By: #### TSPN #### [facility] [address] [place], [place] [address] [id number] PLUS Collected: 12/23/2017 Status: F Source: [facility] [place] 3:46 PM [facility] REPOSITORY TYPE CODE TESTS RESULT OUT OF REFERENCE UNITS RANGE LAB CHRM21 Chromosome 21 Negative LAB CHRM18 Chromosome 18 Negative LAB CHRM13 Chromosome 13 Negative LAB CHRMY Y Chromosome Detected LAB CHYINT Y Chromosome See Notes Interp Result Comment: (NOTE) Consistent with a male fetus. LAB AFIND Additional Findings N/A LAB AFINT Additnl Findings Int N/A LAB AFINTE Additnl Findings Nte N/A LAB MTINT MT21 Interpretation See Notes Result Comment: (NOTE) This specimen showed an expected representation of chromosome 21, 18 and 13 material. Clinical correlation is suggested. LAB LDNTE Carrier Associate Nte See Notes Result Comment: (NOTE) Fraction: 8% LAB MTAPR MT21 Approval See Notes Result Comment: (NOTE) Judd Kirkland MD, PhD LAB MTMETH Method See Notes Result Comment: (NOTE) Circulating cell-free DNA was purified from the plasma component of anti-coagulated maternal whole blood. It was then converted into a genomic DNA library for the determination of chromosome 21, 18, 13 representation and the presence of the Y chromosome.[1] Other chromosomal material, including sex chromosome (X and Y) representation, was also evaluated and will only be reported as an Additional Finding when an abnormality is detected. LAB MTABT About See the test Notes Result Comment: (NOTE) The GkgyoacS05 PLUS test analyzes circulating cell-free DNA extracted from a maternal blood sample. The test is indicated for use in women with increased risk for chromosomal aneuploidy. Validation data on twin pregnancies is limited and the ability of this test to detect aneuploidy in a triplet has not yet been validated. LAB MTPERF Performance See Notes Result Comment: (NOTE) The performance characteristics of the GumhtmcA41 PLUS laboratory-developed test (LDT) have been determined in a clinical validation study with women at increased risk for chromosomal aneuploidy.[1,2,3] LAB MTPERD Performance Data See Notes Result Comment: (NOTE) Trisomy 21 Sensitivity: 99.1%; CI: 96.3-99.8% Trisomy 21 Specificity: 99.9%; CI: 99.6-99.9% Trisomy 18 Sensitivity: >99.9%; CI: 92.4-100.0% Trisomy 18 Specificity: 99.6%; CI: 99.2-99.8% Trisomy 13 Sensitivity: 91.7%; CI: 59.7-99.6% Trisomy 13 Specificity: 99.7%; CI: 99.3-99.9% Y Chromosome Accuracy: 99.4%; CI: 99.0-99.6% LAB MTLMT Limitations See Notes Result Comment: (NOTE) DNA test results do not provide a definitive genetic risk in all individuals. Cell-free DNA does not replace the accuracy and precision of diagnosis with CVS or amniocentesis. These tests are not intended to identify pregnancies at risk for neural tube defects or ventral wall defects. A patient with a positive test result or presence of an Additional Finding should be referred for genetic counseling and offered invasive diagnosis for confirmation of test results.[4] A negative test result does not ensure an unaffected . The absence of an Additional Finding does not indicate a negative result. While results of this testing are highly accurate, not all chromosomal abnormalities may be detected due to placental, maternal or mosaicism, or other causes. Sex chromosomal aneuploidies are not reportable for known multiple gestations. The health care provider is responsible for the use of this information in the management of their patient. LAB MTNTE See Test Note Notes Result Comment: (NOTE) This test was developed and its performance characteristics determined by [facility]. It has not been cleared or approved by the U.S. FDA. This test is used for clinical purposes. It should not be regarded as investigational or for research. This laboratory is certified under the Clinical Laboratory Improvement Amendments (CLIA) as qualified to perform high complexity clinical laboratory testing and accredited by the [employer] [place] [employer]. LAB MTREF References See Notes Result Comment: (NOTE) 1. Melissa CHANG, et al. Nilam Med. 2012;14(3):296-305. 2. Melissa CHANG, et al. Nilam Med. 2011;13(11):913-920. 3. Edie ONEAL et al. Prenat Diag. 2013;33(6):591-597. 4. ACOG/SMFM Joint Committee Opinion No. 545, Mar 2012. CBC Collected: 12/23/2017 Status: F Source: [facility] [place] 3:45 PM [facility] REPOSITORY TYPE CODE TESTS RESULT OUT OF REFERENCE UNITS RANGE LAB WBC 3.70-11.00 k/uL WBC High 11.17 LAB RBC 3.90-5.20 m/uL RBC 4.35 LAB HGB 11.5-15.5 g/dL Hemoglobin 13.0 LAB HCT 36.0-46.0 % Hematocrit 40.8 LAB MCV 80.0-100.0 fL MCV 93.8 LAB MCH 26.0-34.0 pG MCH 29.9 LAB MCHC 30.5-36.0 g/dL MCHC 31.9 LAB RDWCV 11.5-15.0 % RDW-CV 14.0 LAB PLTCT 150-400 k/uL Platelet Count 323 LAB MPV 9.0-12.7 fL MPV 10.5 LAB ABSNUC <0.01 k/uL Absolute nRBC <0.01 Performed By: #### CBC, CMP, RUBIGG, SYPHGX, HBSAG, HIV12C #### [facility] [address] [place], [place] [address] COMP METABOLIC PANEL Collected: 12/23/2017 Status: F Source: [facility] [place] 3:45 PM [facility] REPOSITORY TYPE CODE TESTS RESULT OUT OF REFERENCE UNITS RANGE LAB TP 6.3-8.0 g/dL Protein, Total 7.3 LAB ALB 3.9-4.9 g/dL Albumin 4.1 LAB CA 8.5-10.2 mg/dL Calcium, Total 9.6 LAB TBIL 0.2-1.3 mg/dL Low Bilirubin, Total <0.2 LAB ALKP 32-117 U/L Alkaline Phosphatase 51 LAB AST 13-35 U/L AST 16 LAB GLU 74-99 mg/dL Low Glucose 72 Result Comment: The [place] [employer] Association (ADA) provides guidance for cutoff values for fasting glucose and random glucose. The ADA defines fasting as no caloric intake for at least 8 hours. Fas ting plasma glucose results between 100 to 125 mg/dL indicate increased risk for diabetes (prediabetes). Fasting plasma glucose results greater than or equal to 126 mg/dL meet the criteria for diagnosis of diabetes. In the absence of unequivocal hyperglycemia, results should be confirmed by repeat testing. In a patient with classic symptoms of hyperglycemia or hyperglycemic crisis, random plasma glucose results greater than or equal to 200 mg/dL meet the criteria for diagnosis of diabetes. Reference: Standards of Medical Care in Diabetes 2016, [place] [employer] Association. Diabetes Care. 2016.39(Suppl 1). LAB BUN 7-21 mg/dL BUN 10 LAB CRET 0.58-0.96 mg/dL Creatinine Low 0.46 LAB NA 136-144 mmol/L Sodium 137 LAB K 3.7-5.1 mmol/L Potassium 3.9 LAB CL 97-105 mmol/L Chloride 100 LAB CO2 22-30 mmol/L CO2 25 LAB AGAP 9-18 mmol/L Anion Gap 12 LAB ALT 7-38 U/L ALT Low 6 LAB GFRAA eGFR- Amer. >60 LAB GFRNAA . eGFR-All Other Races >60 Result Comment: eGFR (Estimated GFR) Units of measure: mL/min/1.73 meters squared eGFR is derived from the reexpressed MDRD Study equation using the following parameters: serum creatinine, age, gender and race. The creatinine assay has been calibrated to be traceable to IDMS. An eGFR <60 mL/min/1.73m2 for >3 months is consistent with chronic kidney disease. Refer to KDOQI guidelines for clinical interpretation. In patients with unstable renal function, e.g. those with acute kidney injury, the eGFR may not accurately reflect actual GFR. Performed By: #### CBC, CMP, RUBIGG, SYPHGX, HBSAG, HIV12C #### [facility] [address] [place] [id number] RUBELLA IGG ANTIBODY Collected: 12/23/2017 Status: F Source: [facility] [place] 3:45 PM [facility] REPOSITORY TYPE CODE TESTS RESULT OUT OF REFERENCE UNITS RANGE LAB RUBGQL Negative Rubella IgG Negative Ab, Qual Result Comment: Sample is considered negative for IgG antibodies to rubella virus. A negative result presumes that immunity has not been acquired. If exposure to rubella virus is suspected despite a neg ative finding, a second specimen should be collected and tested one to two weeksn later. Seroconversion from a negative specimen to a positive specimen is evidence of either recent infection, response to vaccination, or administration of immunoglobulins. LAB RUBQNT Index Value Rubella IgG Ab 0.61 Result Comment: Index values are interpreted as follows: Negative specimens <0.90 Equivocol specimens 0.90 to 0.99 Positive specimens >0.99 The magnitude of the measured result is not indicative of the amount of antibody present. Performed By: #### CBC, CMP, RUBIGG, SYPHGX, HBSAG, HIV12C #### [place] [phone] SYPHILIS IGG WITH Collected: 12/23/2017 Status: F Source: [facility] 3:45 PM [facility] REPOSITORY TYPE CODE TESTS RESULT OUT OF REFERENCE UNITS RANGE LAB SYPHQL Nonreactive Syphilis IgG, Nonreactive Qual Result Comment: No serological evidence of infection with T. pallidum. LAB SYPHLG AI Syphilis IgG <0.2 Result Comment: Antibody index is interpreted as follows: Non reactive SPECIMENS <=0.8 Weak reactive SPECIMENS 0.9 to 5.9 Reactive SPECIMENS >=6.0 Performed By: #### CBC, CMP, RUBIGG, SYPHGX, HBSAG, HIV12C #### [place] [phone] HEPATITIS B SURF. AG Collected: 12/23/2017 Status: F Source: [facility] [place] 3:45 PM [facility] REPOSITORY TYPE CODE TESTS RESULT OUT OF REFERENCE UNITS RANGE LAB HBSAG Negative Hepatitis B Negative Surf. Ag Performed By: #### CBC, CMP, RUBIGG, SYPHGX, HBSAG, HIV12C #### [place] [phone] HIV 12 COMBO (AG/AB) Collected: 12/23/2017 Status: F Source: [facility] [place] 3:45 PM [facility] REPOSITORY TYPE CODE TESTS RESULT OUT OF REFERENCE UNITS RANGE LAB HVAGAB Non Reactive HIV Non Reactive 12 Ag/Ab Result Comment: (NOTE) HIV Information: [place] Rev. Code 3701.243(E): This information has been disclosed to you from confidential records protected from disclosure by state law. You shall make no further disclosure of this information without the specific, written, and informed release of the individual to whom it pertains, or as otherwise permitted by state law. A general authorization for the release of medical or other information is not sufficient for the purpose of the release of HIV test results or diagnoses. Performed By: #### CBC, CMP, RUBIGG, SYPHGX, HBSAG, HIV12C #### [address] [place] [address] PROGRESS Observed: 12/23/2017 Status: COMPLETED Source: [facility] [place] 3:04 PM [facility] REPOSITORY HNO ID: [id number] Author: Krystin Darby Service: (none) Author Type: Physician Type: Progress Notes Filed: 12/23/2017 3:07 PM Note Text: A single intrauterine gestational sac is noted with a regular outline. There is no decidual hemorrhage. The yolk sac is visualized and shows normal shape and echogenicity. A living single fetus is noted. The heart rate is within normal range The CRL corresponds to the gestational age. Estimated Date of Delivery: 06/30/18 EGA = 13w0d Negative NT screen for Trisomy 21. The sensitivity of nuchal translucency measurement for Trisomy 21 is ~60%. The anatomy appears normal in the areas visualized. The limitations of ultrasound have been discussed with the patient. RECOMMENDATIONS: - Juan is interested in NIPT. The test will be performed. If the results are positive, invasive genetic testing (CVS or genetic amniocentesis ) will be offered. - US at 15 weeks and every 2 weeks till 24 weeks for cervical length - I recommend scan at 18-20 weeks - Consideration should be made for checking AFP between 15 and 22 weeks if screening for open neural tube defect is desired. - 17 P therapy PROGRESS Observed: 12/23/2017 Status: COMPLETED Source: [facility] [place] 2:21 PM [facility] REPOSITORY HNO ID: [id number] Author: Kati Montalvo Service: (none) Author Type: Physician Type: Progress Notes Filed: 12/23/2017 2:22 PM Note Text: GABE Yañez was given the 4P's screening tool. Juan answered as follows: OB Opioid Screening - Last Recorded (since 03/28/2017) Did any of your parents have a problem with alcohol or other drug use? (!) Yes Does your partner have a problem with alcohol or other drug use? No In the past, have you had difficulties in your life because of alcohol or other drugs, including prescription medications? (!) Yes (alcohol) In the past month have you drunk any alcohol or used other drugs? No Are you taking medication for pain during the either prescribed or not? No Based on the screen and further questions, she is considered at Low risk due to:Low level of use stopped prior to or immediately upon known . Positive reinforcement of current behavior. Plan to rescreen early third trimester. Kati Montalvo MD TOXICOLOGY SCREEN,UR Collected: 12/01/2017 Status: F Source: [facility] [place] 1:50 PM [facility] REPOSITORY TYPE CODE TESTS RESULT OUT OF REFERENCE UNITS RANGE LAB UPCP2 Negative Negative Phencyclidin e, Urine Result Comment: Cutoff threshold at 25 ng/mL. LAB UBENZ2 Negative Benzodiazepines, Ur Negative Result Comment: Cutoff threshold at 200 ng/mL. LAB UCOC2 Negative Cocaine, Negative Urine Result Comment: Cutoff threshold at 300 ng/mL. LAB UAMPH2 Negative Amphetamines, Urine Negative Result Comment: Cutoff threshold at 1000 ng/mL. LAB UTHC2 Negative Cannabinoids, Abnormal Urine Preliminary Alert positive. Result Comment: Cutoff threshold at 50 ng/mL. LAB UOPI2 Negative Opiates, Negative Urine Result Comment: Cutoff threshold at 300 ng/mL. LAB UBARB2 Negative Barbiturates, Urine Negative Result Comment: Cutoff threshold at 200 ng/mL. LAB UETOH <11 mg/dL <11 Ethanol, Urine LAB UOXYC Negative Oxycodone, Negative Urine Result Comment: Cutoff threshold at 100 ng/mL. Comment: Immunoassay screen only. Cross reactivity with other substances can occur with immunoassay screening. Detection of any drug(s) in this urine toxicology panel is presumptive only. These tests are for med ical purposes only and should not be used for compliance monitoring, legal, or forensic use. Samples should be within normal physiological conditions (e.g. pH). This assay does not include adulteration/specimen validity testing. In clinical settings, confirmatory testing is at the practitioner's discretion [1]. If clinically indicated, confirmation by high specificity, quantitative methodology, which includes adulteration/spec imen validity testing, may be requested on the same specimen through Client Services ([phone]) if contacted within 48 hours of initial testing. [1]Substance Abuse and Mental Health Services Administration (2012). Clinical Drug Testing in Primary Care Technical Assistance Publication Series 32. Department of Health and Human Services, [place], p.10. These tests were developed and their performance characteristics determined by [facility] ([facility]). They have not been cleared or a pproved by the FDA. [facility] is regulated under CLIA as qualified to perform high complexity testing. These tests are used for clinical purposes. They should not be regarded as investigational or for research. Performed By: #### UTOX2 #### [place] [address] GC/CHLAMYDIA AMPLIF Collected: 12/01/2017 Status: F Source: [facility] [place] 10:40 AM [facility] REPOSITORY TYPE CODE TESTS RESULT OUT OF REFERENCE UNITS RANGE LAB GCCTSR GC/Chlam Amp Cervix Source LAB GCAMPL GC Negative Amplification for Neisseria gonorrhoeae by amplification. LAB CLAMPL Chlamydia Negative Amplif for Chlamydia trachomatis by amplification. Performed By: #### GCCT #### [place] [address] Observed: 12/01/2017 Status: F Source: [facility] [place] URINE CULTURE 10:40 AM [facility] REPOSITORY Sp. Request/Comment: - Specimen received in preservative Culture Result - <10,000 CFU/ml Staphylococcus aureus --> ABNORMAL ALERT Insignificant colony count. No further workup. --> ABNORMAL ALERT <10,000 CFU/ml --> ABNORMAL ALERT Streptococcus agalactiae (Group B streptococcus) --> ABNORMAL ALERT No further workup --> ABNORMAL ALERT Performed By: #### URCUL #### [place] [address] PROGRESS Observed: 12/01/2017 Status: COMPLETED Source: [facility] [place] 9:39 AM [facility] REPOSITORY HNO ID: [id number] Author: Brayden Olson Service: (none) Author Type: Physician Type: Progress Notes Filed: 12/01/2017 11:07 AM Note Text: INITIAL OB ASSESSMENT Obstetric History T0 L1 SAB0 TAB0 Ectopic0 Multiple0 Live Births1 Name of Baby 1: Not recorded Date: 04/01/10 GA: 35w5d Delivery: VAGINAL Apgar1: 9 Apgar5: 7 Living: Living Name of Baby 2: Not recorded Date: Not recorded GA: Not recorded Delivery: Not recorded Apgar1: Not recorded Apgar5: Not recorded Living: Not recorded GABE Yañez was given the 4P's screening tool. Juan answered as follows: OB Opioid Screening - Last Recorded (since 03/06/2017) Did any of your parents have a problem with alcohol or other drug use? (!) Yes Does your partner have a problem with alcohol or other drug use? No In the past, have you had difficulties in your life because of alcohol or other drugs, including prescription medications? (!) Yes (alcohol) In the past month have you drunk any alcohol or used other drugs? No Are you taking medication for pain during the either prescribed or not? No Based on the screen and further questions, she is considered at Low risk due to:Low level of use stopped prior to or immediately upon known . Positive reinforcement of current behavior. Plan to rescreen early third trimester. Brayden Olson MD HPI: Juan Yañez is a 37 year old female here to establish Obstetrical Care. Patient's last menstrual period was 10/06/2017 (exact date). from OB Dating Form. Complaints: None was unplanned but accepted. Obstetric History T0 L1 SAB0 TAB0 Ectopic0 Multiple0 Live Births1 Prior : never History of 4th degree laceration: No Patient's Risk Screening for delivery: History of abnormal pap: Yes Prior treatment for cervical dysplasia: none. 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 Patient BMI over 30? No Marital Status:Co-habitating Partner: Name: Alan PAST MEDICAL HISTORY Diagnosis Date - Depression - UTI (urinary tract infection) - Varicella without mention of complication AGE 4 Chickenpox PAST SURGICAL HISTORY Procedure Laterality Date - EXTRACTION ERUPTED TOOTH/EXR 07/10/03 - KNEE ARTHROSCOPY left knee cyst removal - ORAL SURGERY PROCEDURE 08/2012 - REMOVAL OF TONSILS,<12 Y/O Tonsillectomy Current Outpatient Prescriptions on File Prior to Visit: calcium carbonate (TUMS ORAL) Take by mouth as needed. Ibuprofen 200 mg cap Take by mouth as needed. acetaminophen (TYLENOL) 325 mg tablet Take 650 mg by mouth every 6 hours as needed. MULTI-VITAMIN ORAL Take by mouth. No current facility-administered medications on file prior to visit. Review of Systems: GENERAL: Negative for: Fever or Chills HEENT: Negative for: Headache, Impaired Vision, Ringing in Ears, Nosebleeds NECK: Negative for: Swelling, Pain, Stiffness RESPIRATORY: Negative for: Cough, Shortness of breath, Wheezing GASTROINTESTINAL: Negative for: Heartburn, Constipation, Diarrhea, Blood in stool, Vomiting MUSCULOSKELETAL: Negative for: Muscle or joint pain, stiffness, Joint swelling NEUROLOGIC/PSYCHIATRIC: Negative for: Weakness, Paralysis, Numbness, Tingling, Tremor, Anxiety, Depression, Memory loss SKIN: Negative for: Rash, Itching GENITOURINARY: Negative for: vaginal itching, vaginal discharge, hematuria or dysuria PHYSICAL EXAM: LMP 10/06/2017 GENERAL: pleasant female in no apparent distress DERMATOLOGY: Normal, without lesions, non-icteric and non-hirsute NECK: Supple, full range of motion, no adenopathy and thyroid normal CHEST: Normal inspiratory effort BREAST: soft, non-tender, symmetric, no dominant mass, normal nipple-areolar complex, no lymphadenopathy and no nipple discharge ABDOMEN: soft, non-tender and no masses NEURO: alert and oriented x3,exam grossly non-focal PELVIS: External genitalia normal without lesions. Perineal body intact. No vaginal or cervical lesions. Cervix closed. Uterus 10 week size. No adnexal masses or tenderness. Clinical Pelvimetry: Pelvimetry clinically assessed as adequate Limited OB ultrasound exam: single intrauterine and positive cardiac activity ASSESSMENT: 37 year old at 9AND6 wks gestational age PLAN: 1) Patient oriented to practice. Discussed nutrition, folic acid supplementation, dietary guidelines, exercise, smoking, alcohol, caffeine, and drug use. Discussed routine OB labs including STD/HIV. Discussed aneuploidy screening options including serum screening and nuchal translucency. NT ordered. CF carrier screening discussed and declined. 2) See problem list Follow up in 4 weeks or sooner prn. Brayden Olson MD EMERGENCY DEPARTMENT Observed: 11/29/2017 Status: F Source: [facility] 3:40 PM [facility] REPOSITORY [facility] Medical Records Department [address] [place] [address] Emergency Department Summary 11/29/17 0743 MR#: [id number] Acct: [id number] Name: JUAN YAÑEZ Rep #: [id number] : 1980 37 From: Chely Durno MD PCP: Orestes Mills DO Status: DEP ER - ER Visit Summary Date of Service: 11/29/17 Chief Complaint: [] 8 week , persistent intermittent pelvicl cramps History of Present Illness: The patient is a 37 F [] patient is 8 weeks single live IUP by ultrasound on November 18, she has persistent intermittent abdominal cramps in the low pelvic area since onset of . She has had no vomiting no fever normal urinary and bowel habits, no vaginal bleeding she was seen at that time and found to have as above nothing has really changed except the abdominal cramps in the lower pelvic area have persisted this morning she came in for evaluation she is not taking for the pain such as Tylenol she has had no bleeding no urinary symptoms she is no history of ectopic or PID Physical Examination: [] Resting comforting the bed her vital signs are within normal range head neck chest unremarkable abdomen is very soft there is no tenderness rebound guarding organomegaly any area the backs unremarkable upper lower extremity unremarkable her suprapubic area is unremarkable these cramps seem to come and go she absolutely adamantly denies bleeding or discharge we discussed pelvic exam and she deferred the pelvic exam She did have an ultrasound as above that showed single live IUP 8 weeks of explained to the is no indication to repeat an ultrasound, we will check UA Test Results: [] Emergency Department Course and Treatment: [] UA is unremarkable we did review the ultrasound reports as above, explained all the above to her she will 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 It may contain incorrect words, spelling, and punctuation that were not noted in review of the chart prior to signing ED Disposition - Plan for ED Patient: Chief Complaint: Referrals: Orestes Hampton DO [Primary Care Provider] - What to do if you have Problems For any increased pain, shortness of breath, bleeding, nausea or vomiting, chest pain, or any unexpected problems, contact your Primary Care Provider. Call [facility] ([phone]) or report to the closest Emergency Room. Call 911 if necessary. 11/29/17 1540 <Electronically signed by Chely Duron MD> Date Chely Duron MD Cosigner Signature (If Indicated): Date CC: Orestes Mills DO DISCHARGE INSTRUCTION Observed: 11/29/2017 Status: F Source: [place] 8:35 AM [facility] REPOSITORY [facility] Medical Records Department [address] [place] [address] Discharge Instruction 11/29/17 0834 MR#: [id number] Acct: [id number] Name: JUAN YAÑEZ Rep #: [id number] : 1980 37 From: Chely Duron MD PCP: Orestes Mills DO Status: REG ER ED Disposition - Plan for ED Patient: Chief Complaint: Instructions: ED Miscarriage Poss Referrals: Orestes Hampton DO [Primary Care Provider] - What to do if you have Problems For any increased pain, shortness of breath, bleeding, nausea or vomiting, chest pain, or any unexpected problems, contact your Primary Care Provider. Call [facility] ([phone]) or report to the closest Emergency Room. Call 911 if necessary. 11/29/17 0835 <Electronically signed by Chely Duron MD> Date Chely Duron MD Cosigner Signature (If Indicated): Date CC: Orestes Jose Gdu, DO URINALYSIS, COMPLETE Collected: 11/29/2017 Status: F Source: [place] 7:54 AM [facility] REPOSITORY Order Comment: How was Urine Obtained? CLEAN CATCH TYPE CODE TESTS RESULT OUT OF RANGE REFERENCE UNITS LAB L400.3000 Yellow COLOR Normal Yellow LAB L400.3050 Clear Normal CLARITY Clear LAB L400.3200 Normal mg/dl Normal GLUCOSE, UR Normal LAB L400.3300 Negative mg/dL Normal BILIRUBIN URINE Negative LAB L400.3400 Negative mg/dl Normal KETONE UR Negative LAB L400.3465 1.002-1.030 Normal SP.GR. DIPSTX 1.010 LAB L400.3550 5.0 - 8.0 pH UR Normal 6.5 LAB L400.3600 Negative mg/dl PROT Normal DIPSTX Negative LAB L400.3700 Normal mg/dl Normal UROBILI Normal LAB L400.3750 Negative Normal NITRITE UR Negative LAB L400.3780 Negative /ul Normal OCCULT BLOOD-UR Negative LAB L400.3800 Negative /ul LEUK Normal ESTERASE Negative LAB L400.4050 0-5 /hpf WBC 0 Normal SEEN LAB L400.4100 0-5 /hpf 0 Normal RBC-UA SEEN LAB L400.4150 5-10 /hpf SQUAM Normal EPI 0-5 SEEN LAB L400.4300 None Seen /hpf 0 Normal BACTERIA SEEN LAB L400.4350 <or=2+ /hpf 0 Normal MUCUS, URINE SEEN Performed By: #### L400.0001 #### [facility] [address] [facility] [place], [place], [address] Observed: 11/29/2017 Status: F Source: [place] CULTURE, URINE 7:54 AM [facility] REPOSITORY Urine Culture #1 Below infection level. #2 Probable contaminants. ORGANISM 1: Staphylococcus aureus [place] Count 1000-10,000 ORGANISM 2: Mixed Gram Positive Organisms [place] Count 1000-10,000 Performed By: #### M100.0650 #### [facility] [address] [place], [address] PROGRESS Observed: 11/20/2017 Status: COMPLETED Source: [facility] [place] 10:12 AM [facility] REPOSITORY HNO ID: [id number] Author: Dena Restrepo Service: (none) Author Type: Risk Assessor Type: Progress Notes Filed: 11/20/2017 4:39 PM Note Text: Juan Yañez is a 37 year old female who presents for problem visit For follow up ER visit. HPI: Patient seen in ER for cramping on 11/18/17. No vaginal bleeding or other complaints. Had Lower bilateral cramping. U/S done showed small subchorionic hemorrhage.Patient was placed on 10lb lifting restriction and pelvic rest. Here today because she would like to return to work and lifting restriction removed. Denies any further cramping, pain , or vaginal bleeding. PAST MEDICAL HISTORY Diagnosis Date - Depression - UTI (urinary tract infection) - Varicella without mention of complication AGE 4 Chickenpox PAST SURGICAL HISTORY Procedure Laterality Date - EXTRACTION ERUPTED TOOTH/EXR 07/10/03 - KNEE ARTHROSCOPY left knee cyst removal - ORAL SURGERY PROCEDURE 08/2012 - REMOVAL OF TONSILS,<12 Y/O Tonsillectomy FAMILY HISTORY Problem Relation Age of Onset - Alcohol/Drug Mother - Arthritis Mother - Emphysema Mother - Colon Cancer Maternal Grandfather Social History Marital status: Single Spouse name: Years of education: 12 Number of children: 1 Occupational History Occupation [employer]er [employer] Social History Main Topics Smoking status: Current Every Day Smoker Packs/day: 1.00 Years: 17.00 Types: Cigarettes Start date: 04/27/1996 Last attempt to quit: 08/02/2014 Smokeless tobacco: Never Used Alcohol use: No Drug use: No Sexual activity: Yes Partners with: Male Social History Narrative Goes by Carline Single, engaged, 2 yo biological son, 2 stepchildren (age 14 and 16) - [facility] 09/2012 Current Outpatient Prescriptions: calcium carbonate (TUMS ORAL) Take by mouth as needed. MULTI-VITAMIN ORAL Take by mouth. Ibuprofen 200 mg cap Take by mouth as needed. acetaminophen (TYLENOL) 325 mg tablet Take 650 mg by mouth every 6 hours as needed. No current facility-administered medications for this visit. Allergies As of Date: 11/20/2017 (No Known Allergies) Fully Assessed 11/20/2017 REVIEW OF SYSTEMS Abdomen: No bloating, early satiety, indigestion, or increased flatulence. No abdominal pain, nausea, vomiting, diarrhea, or constipation. Bladder: No dysuria, gross hematuria, urinary frequency, urinary urgency, or incontinence. Breast: No breast lumps, nipple d/c, overlying skin changes, redness or skin retraction. Expanded ROS: N/A Allergies and current medication updated:Yes EXAM: BP 100/64 Wt 141 lb (64.0kg) LMP 10/06/2017 GENERAL: pleasant, female in no apparent distress HEENT: Normocephalic and atraumatic NECK: Supple and full range of motion ABDOMEN: soft, non-tender and no masses NEURO: alert and oriented x3,exam grossly non-focal EXTREMITIES: normal 11/18/17 TV U/S single IUP with 8w0d EGA, small subchorionic hemorrhage. Inconsistent with LMP, ANGELITO 06/30/17 ASSESSMENT AND PLAN: 1. Pelvic pain in , antepartum - ICD9: 646.83, 625.9, ICD10: O26.899, R10.2 -Patient with no further symptoms, pain, or vaginal bleeding. Ok to return to work. 30lb lifting restriction at this time till new OB visit. ANGELITO 06/30/17 by 1st trimester U/S. PNV sent to pharmacy on file. PNOB visit scheduled fo 11/26/17 NEWTON Martínez Observed: 11/20/2017 Status: COMPLETED Source: [facility] [place] 10:00 AM [facility] REPOSITORY Office Visit (WOOB) JUAN YAÑEZ ([id number]) 1980 F Date Time Provider Department 11/20/17 10:00 AM DENA RESTERPO (LUBNA) WOOB During your visit today, we recorded the following information about you: Blood pressure Weight Last Period 100/64 64 kg 10/06/17 Dena Restrepo APRN.CNM 11/20/2017 4:39 PM Signed Juan Denise Tyler is a 37 year old female who presents for problem visit For follow up ER visit. HPI: Patient seen in ER for cramping on 11/18/17. No vaginal bleeding or other complaints. Had Lower bilateral cramping. U/S done showed small subchorionic hemorrhage.Patient was placed on 10lb lifting restriction and pelvic rest. Here today because she would like to return to work and lifting restriction removed. Denies any further cramping, pain , or vaginal bleeding. PAST MEDICAL HISTORY Diagnosis Date - Depression - UTI (urinary tract infection) - Varicella without mention of complication AGE 4 Chickenpox PAST SURGICAL HISTORY Procedure Laterality Date - EXTRACTION ERUPTED TOOTH/EXR 07/10/03 - KNEE ARTHROSCOPY left knee cyst removal - ORAL SURGERY PROCEDURE 08/2012 - REMOVAL OF TONSILS,<12 Y/O Tonsillectomy FAMILY HISTORY Problem Relation Age of Onset - Alcohol/Drug Mother - Arthritis Mother - Emphysema Mother - Colon Cancer Maternal Grandfather Social History Marital status: Single Spouse name: Years of education: 12 Number of children: 1 Occupational History Occupation Employer Comment [employer] Social History Main Topics Smoking status: Current Every Day Smoker Packs/day: 1.00 Years: 17.00 Types: Cigarettes Start date: 04/27/1996 Last attempt to quit: 08/02/2014 Smokeless tobacco: Never Used Alcohol use: No Drug use: No Sexual activity: Yes Partners with: Male Social History Narrative Goes by Carline Single, engaged, 2 yo biological son, 2 stepchildren (age 14 and 16) - [facility] 09/2012 Current Outpatient Prescriptions: calcium carbonate (TUMS ORAL) Take by mouth as needed. MULTI-VITAMIN ORAL Take by mouth. Ibuprofen 200 mg cap Take by mouth as needed. acetaminophen (TYLENOL) 325 mg tablet Take 650 mg by mouth every 6 hours as needed. No current facility-administered medications for this visit. Allergies As of Date: 11/20/2017 (No Known Allergies) Fully Assessed 11/20/2017 REVIEW OF SYSTEMS Abdomen: No bloating, early satiety, indigestion, or increased flatulence. No abdominal pain, nausea, vomiting, diarrhea, or constipation. Bladder: No dysuria, gross hematuria, urinary frequency, urinary urgency, or incontinence. Breast: No breast lumps, nipple d/c, overlying skin changes, redness or skin retraction. Expanded ROS: N/A Allergies and current medication updated:Yes EXAM: BP 100/64 Wt 141 lb (64.0kg) LMP 10/06/2017 GENERAL: pleasant, female in no apparent distress HEENT: Normocephalic and atraumatic NECK: Supple and full range of motion ABDOMEN: soft, non-tender and no masses NEURO: alert and oriented x3,exam grossly non-focal EXTREMITIES: normal 11/18/17 TV U/S single IUP with 8w0d EGA, small subchorionic hemorrhage. Inconsistent with LMP, ANGELITO 06/30/17 ASSESSMENT AND PLAN: 1. Pelvic pain in , antepartum - ICD9: 646.83, 625.9, ICD10: O26.899, R10.2 -Patient with no further symptoms, pain, or vaginal bleeding. Ok to return to work. 30lb lifting restriction at this time till new OB visit. ANGELITO 06/30/17 by 1st trimester U/S. PNV sent to pharmacy on file. PNOB visit scheduled fo 11/26/17 Dena Restrepo APRN.LUBNA Referring Provider: SELF [200] Allergies As of Date: 11/20/2017 (No Known Allergies) Date Reviewed: 11/20/2017 Reviewed by: Kailee Looney Ma - Fully Assessed Reason for Visit: ER F/U [41] Cmt: Discuss Lifting Restrictions Primary Visit Diagnosis:Pelvic pain in , antepartum [O26.899, R10.2] Prescriptions as of 11/20/2017 Sig: TUMS ORAL Take by mouth as needed. MULTI-VITAMIN ORAL Take by mouth. IBUPROFEN 200 MG CAPSULE Take by mouth as needed. ACETAMINOPHEN 325 MG TABLET Take 650 mg by mouth every 6 * Problem List As Of Date 11/20/2017 Noted Resolved Supervision of other high-risk [O09.8*INVALID FOR*05/20/2010 General counseling for prescription of oral con*INVALID FOR*10/05/2012 Anxiety and depression [F41.9, F32.9] INVALID FOR* Fatigue [R53.83] INVALID FOR* Irregular bleeding [N92.6] INVALID FOR* Disposition: Return for New OB visit. Follow-up and Disposition History Recorded Letter Text Dena Restrepo CNM [facility] [address] [place] [phone] Juan Yañez [address] [facility] [address] 11/20/2017 [facility]: [id number] To Whom It May Concern: The above named patient needs to restrict weight lifting to 30 pounds during . Sincerely, Dena Restrepo CNM Encounter Status:Closed by DENA RESTREPO on 11/20/17 DISCHARGE INSTRUCTION Observed: 11/18/2017 Status: F Source: [facility] 2:45 PM [facility] REPOSITORY [facility] Medical Records Department [address] [place] [address] Discharge Instruction 11/18/17 1440 MR#: [id number] Acct: [id number] Name: JUAN YAÑEZ Rep #: [id number] : 1980 37 From: Sarita Mccollum PCP: Orestes Mills DO Status: REG ER ED Disposition - Plan for ED Patient: Chief Complaint: Abd Pain Instructions: : Your First Trimester Changes Referrals: Brayden Olson [STAFF PHYSICIAN] - 3-5 Days Additional Instructions: Pelvic Rest No lifting greater than 10 lbs. No sex until follow up wit hob small subchorionic hemorrhage on ultrasound What to do if you have Problems For any increased pain, shortness of breath, bleeding, nausea or vomiting, chest pain, or any unexpected problems, contact your Primary Care Provider. Call [facility] ([phone]) or report to the closest Emergency Room. Call 911 if necessary. 11/18/17 1445 <Electronically signed by Sarita Mccollum > Date Sarita Mccollum Cosigner Signature (If Indicated): Date CC: Orestes Mills DO EMERGENCY DEPARTMENT Observed: 11/18/2017 Status: F Source: [facility] SUMMARY 2:32 PM [facility] REPOSITORY [facility] Medical Records Department [address] [place] [address] Emergency Department Summary 11/18/17 1429 MR#: [id number] Acct: [id number] Name: JUAN YAÑEZ Rep #: [id number] : 1980 37 From: Sarita Mccollum PCP: Orestes Mills DO Status: REG ER - ER Visit Summary Date of Service: 11/18/17 Chief Complaint: [ and abdominal pain] History of Present Illness: The patient is a 37 F [who presents the emergency department with 2 days of lower abdominal cramping bilateral. It has been intermittent she has had occasional vomiting for the last few weeks she did have a home test that was positive her last menstrual cycle was October 06, 2017 she is . No vaginal bleeding no dysuria or hematuria she has had some frequency. She has an appointment with Dr. Coelho on December 01] Physical Examination: [] WN WD NAD PERRL EOMI MMM NECK supple and nontender, no masses RRR no murmur rub or gallop, no peripheral edema, symmetric radial pulses CTAB no respiratory distress ABDOMEN is soft mild tenderness in the bilateral pelvis, normal bowel sounds, no distension, no rebound or guarding SKIN is warm and dry no rashes Alert and Oriented x3, CN II-XII in tact, no motor or sensory deficits, gait normal No lymphadenopathy Test Results: [] Emergency Department Course and Treatment: [HCG was 69,000. Urine did not appear infected. Other labs were unremarkable. Ultrasound showed single IUP at 6 weeks and 1 day. There was a small subchorionic hemorrhage. I will place the patient on pelvic rest until she follows up with Dr. Coelho.] Treatment Plan: [] Disposition: ] Impression: [First trimester with subchorionic hemorrhage] This note was generated with iWitness dictation software. It may contain incorrect words, spelling, and punctuation that were not noted in review of the chart prior to signing ED Disposition - Plan for ED Patient: Chief Complaint: Abd Pain Referrals: Orestes Hampton DO [Primary Care Provider] - What to do if you have Problems For any increased pain, shortness of breath, bleeding, nausea or vomiting, chest pain, or any unexpected problems, contact your Primary Care Provider. Call [facility] ([phone]) or report to the closest Emergency Room. Call 911 if necessary. 07/25/18 1432 <Electronically signed by Sarita Mccollum > Date Sarita Mccollum Cosigner Signature (If Indicated): Date CC: Orestes Mills, DO URINALYSIS, COMPLETE Collected: 11/18/2017 Status: F Source: [place] 12:45 PM [facility] REPOSITORY Order Comment: How was Urine Obtained? CLEAN CATCH TYPE CODE TESTS RESULT OUT OF RANGE REFERENCE UNITS LAB L400.3000 Yellow COLOR Normal Yellow LAB L400.3050 Clear Normal CLARITY Sl. Cloudy LAB L400.3200 Normal mg/dl Normal GLUCOSE, UR Normal LAB L400.3300 Negative mg/dL Normal BILIRUBIN URINE Negative LAB L400.3400 Negative mg/dl Normal KETONE UR Negative LAB L400.3465 1.002-1.030 Normal SP.GR. DIPSTX 1.010 LAB L400.3550 5.0 - 8.0 pH UR Normal 8.0 LAB L400.3600 Negative mg/dl PROT Normal DIPSTX Negative LAB L400.3700 Normal mg/dl Normal UROBILI Normal LAB L400.3750 Negative Normal NITRITE UR Negative LAB L400.3780 Negative /ul Normal OCCULT BLOOD-UR Negative LAB L400.3800 Negative /ul High LEUK 25 ESTERASE LAB L400.4050 0-5 /hpf WBC Normal 0-5 SEEN LAB L400.4100 0-5 /hpf 0 Normal RBC-UA SEEN LAB L400.4150 5-10 /hpf SQUAM Normal EPI 5-10 SEEN LAB L400.4300 None Seen /hpf 1+ Normal BACTERIA LAB L400.4350 <or=2+ /hpf 0 Normal MUCUS, URINE SEEN Performed By: #### L400.0001 #### [facility] [address], [address] CT/NG WCH BY PCR Collected: 11/18/2017 Status: F Source: [place] 12:45 PM [facility] REPOSITORY TYPE CODE TESTS RESULT OUT OF RANGE REFERENCE UNITS LAB L8200.2100 Negative Normal Chlam Negative Trac PCR LAB L8200.2200 Negative Normal NG by Negative PCR Performed By: #### L8200.1999 #### [facility] [address] [place], [address] CBC W/DIFF, AUTOMATED Collected: 11/18/2017 Status: F Source: [place] 12:35 PM [facility] REPOSITORY TYPE CODE TESTS RESULT OUT OF RANGE REFERENCE UNITS LAB L100.1000 4.4-11.0 K/mm3 Normal WBC 8.6 LAB L100.1200 4.2-5.4 M/mm3 Normal RBC 4.43 LAB L100.1300 12.0-15.0 g/dl Normal HGB 12.9 LAB L100.1400 37-47 % Normal HCT 38.8 LAB L100.1500 81-99 fL Normal MCV 87.6 LAB L100.1600 27.0-32.0 pg Normal MCH 29.1 LAB L100.1700 32-36 g/gl Normal MCHC 33.2 LAB L100.1810 11.6-14.6 % Normal RDW CV 13.5 LAB L100.1820 35.1-43.9 fl Normal RDW SD 43.3 LAB L100.1900 150-450 K/mm3 Normal PLT 270 LAB L100.2000 6.2-12.0 fl Normal MPV 8.8 LAB L100.2100 47-70 % Normal NEUT% 61.8 LAB L100.2200 19-41 % Normal LY% 28.3 LAB L100.2300 0-10 % Normal MONO% 8.1 LAB L100.2400 0-5 % Normal EO% 1.2 LAB L100.2500 0-1 % Normal BASO% 0.5 LAB L100.2550 0.0-0.9 % Normal IM GRAN % 0.100 Result Comment: IG% - Immature Granulocytes (promyelocytes, myelocytes and metamyelocytes) > 1% indicates that a LEFT SHIFT is Present. LAB L100.2620 2.0-7.7 X10 3/uL Normal Absolute Neut 5.3 LAB L100.2720 0.83-4.51 X10 3/ul Normal Absolute Lymph 2.44 Performed By: #### L100.0100 #### [facility] [address] [place], [place], [id number] COMPREHENSIVE METABOLIC Collected: 11/18/2017 Status: F Source: [place] 12:35 PM [facility] REPOSITORY TYPE CODE TESTS RESULT OUT OF RANGE REFERENCE UNITS LAB L501.0100 74-106 mg/dL Normal GLU 81 Result Comment: Please note revised GLUCOSE reference range effective 2017. LAB L501.1000 7-18 mg/dL Low BUN 6 LAB L501.1100 0.55-1.02 mg/dL Low CREAT,SERUM 0.43 Result Comment: The validity of the calculated GFR AND GFRAA in patients over 70 years has not been determined. Clinical correlation is essential. LAB L501.1110 >60 mL/min Normal EST GFR 173 Result Comment: Non- GFR Calc LAB L501.1115 >60 mL/min Normal EST GFR - AA 209 Result Comment: GFR Calc LAB L501.1255 ml/min Normal Estimated CRCL 146.74 LAB L501.1300 10-20 RATIO BUN/CRE Normal 13.8 LAB L501.1500 6.4-8. g/dL 2 T PROT Normal 7.2 LAB L501.1800 3.2-5. g/dL 0 ALB Normal 3.5 LAB L501.1950 2.2-4. g/dL 2 GLOB Normal 3.7 LAB L501.2000 0.9-2. RATIO 4 A/G Normal 0.9 LAB L501.2200 8.5-10 mg/dL .1 CA Normal 8.9 LAB L501.4100 15-37 U/L Low AST 10 LAB L501.4305 45-117 U/L ALK P Normal 60 LAB L501.4405 13-56 U/L ALT Normal 19 LAB L501.4600 0.20-1 mg/dL .00 T BILI Normal 0.20 LAB L501.5300 136-14 mmol/L 5 NA Normal 139 LAB L501.5600 3.5-5. mmol/L 1 K Normal 3.8 LAB L501.5900 98-107 mmol/L CL Normal 106 LAB L501.6100 21.0-3 mmol/L 2.0 CO2 Normal 26.0 LAB L501.6200 5-15 GAP Normal 7 Performed By: #### L500.4050 #### [facility] [address] [place], [address] HCG TITER QUANT., Collected: 11/18/2017 Status: F Source: [place] 12:35 PM [facility] REPOSITORY TYPE CODE TESTS RESULT OUT OF RANGE REFERENCE UNITS LAB L700.8000 <9 non-preg mIU/mL High HCG 64055 QUANT. Performed By: #### L700.8000 #### [facility] [address] [place], [address] TRANSVAGINAL W/PREG US Observed: 11/18/2017 Status: F Source: [place] 12:26 PM [facility] REPOSITORY [facility] Imaging Services [address] [place] [address] Transvaginal w/Preg US MR#: [id number] Acct: [id number] Name: JUAN YAÑEZ Rep #: [id number] : 1980 F 37 From: Jeremy Leyva MD PCP: Orestes Mills DO Status: REG ER Study: Transvaginal w/Preg US Date of Exam: 11/18/17 Exam# [id number] Ordering Dr: Sarita Mccollum STUDY: FIRST TRIMESTER OBSTETRICAL ULTRASOUND REASON FOR EXAM: Female, 37 years old. Cramping. LMP: October 06, 2017. TECHNIQUE: Transvaginal PRIOR ULTRASOUND: None. FINDINGS: There is visualization of a single gestational sac in a normal intrauterine position. The gestational sac shape is within normal limits. There is a visualized yolk sac. The yolk sac measures 3 mm. The placenta is non-visualized. Irregular sonolucency along the inferior margin of the gestational sac consistent with a small subchorionic hemorrhage. There is visualization of a live embryo. The crown-rump length (CRL) measures 1.6 cm, indicating an estimated gestational age (EGA) of 8 weeks, 0 days. There is demonstrated cardiac activity with a heart rate of 164 bpm. The estimated gestation age (EGA) by LMP is 6 weeks, 1 days. The estimated date of delivery (ANGELITO) by LMP is July 13, 2018. The estimated gestation age (EGA) by US is 8 weeks, 0 days. The estimated date of delivery (ANGELITO) by US is June 30, 2018. The anteverted uterus measures 10.2 x 7.6 x 5.9 cm. There is no demonstrated uterine fibroid. The cervix is closed. The right ovary measures 2.6 x 1.9 x 1.8 cm. There is no right ovarian cyst. There is no visualized right adnexal mass or complex lesion. The left ovary measures 2.3 x 2.7 x 1.7 cm. There is no left ovarian cyst. There is no visualized left adnexal mass or complex lesion. There is no fluid in the cul de sac. US/Transvaginal w/Preg US IMPRESSION: 1. Single living intrauterine with estimated gestational age of 8 weeks, 0 days. Estimated date of delivery by today's study is June 30, 2018. 2. Small subchorionic hemorrhage at the inferior margin of the gestational sac. 3. The ovaries are unremarkable. Electronically Signed: Geovanny Leyva MD at 13:54 EDT , Service support , CC: Sarita Mccollum; Orestes Mills DO Fretted Instrument Inspector: Signed PROGRESS Observed: 06/11/2017 Status: COMPLETED Source: [facility] [place] 10:02 AM [facility] REPOSITORY HNO ID: [id number] Author: Denise Sadler Service: (none) Author Type: Nurse Practitioner Type: Progress Notes Filed: 06/11/2017 10:31 AM Note Text: Juan Howie Yañez presents for removal of IUD due to continued cramping, bleeding and pain since insertion. Pelvic US on 06/05 showed proper placement. Denies fever, chills or abnormal vaginal discharge. Has been taking ibuprofen and acetaminophen for cramping. PROCEDURE: Speculum placed in vagina, Unable to visualize IUD strings or tease them down with brush. IUD removed with IUD hook per Rock Santillan CNP. Cervix without erythema or abnormal discharge. ASSESSMENT/PLAN: IUD removed without difficult and patient tolerated procedure well. Contraception plans: condoms. Declines OCP or Nuva Ring. Would like information on Nexplanon - given pamphlet. Discusses R/B/A including irregular bleeding. Will call office to pre-certify if she decides to try it. DENISE SADLER CNP US FEMALE PELVIS Observed: 06/05/2017 Status: F Source: [facility] [place] TRANSVAG 10:01 AM [facility] REPOSITORY * * *Final Report* * * DATE OF EXAM: Jun 05 2017 10:01AM [facility] 1060 - US FEMALE PELVIS TRANSVAG / PROCEDURE REASON: Pain due to genitourinary prosthetic devices, implants and grafts, initial encou * * * * Physician Interpretation * * * * PELVIC ULTRASOUND HISTORY: Pelvic pain and cramping since IUD insertion 05/28/2017 Menstrual status: LMP 05/26/2017 COMPARISON: None. TECHNIQUE: Sonography of the pelvis was performed by transabdominal and transvaginal techniques. Images were obtained and stored in a permanent archive. RESULT: Transabdominal examination limited by lack of a full bladder Uterus: -Orientation: Anteverted -Size: 7.5 x 3.7 x 4.9 cm. -Myometrium: Normal, no leiomyoma -Endometrial echo complex: 6 mm. Normal thickness. IUD in the endometrial canal -Cervix: 5 mm nabothian cyst Right ovary: Normal -Size: 3.2 x 2.1 x 2.5 cm. -Complex cyst: None. -Solid mass: None. Left ovary: Normal -Size: 3.3 x 2.3 x 2.6 cm. -Complex cyst: None. -Solid mass: None. Pelvis free fluid: Absent IMPRESSION: IUD IN SATISFACTORY POSITION NORMAL SONOGRAPHIC APPEARANCE OF THE FEMALE PELVIS. Fretted Instrument Inspector: BEBETO Transcribe Date/Time: Jun 05 2017 11:21A Dictated by : CRYSTAL KIMBLE MD This examination was interpreted and the report reviewed and electronically signed by: CRYSTAL KIMBLE MD on Jun 05 2017 11:23AM EST [id number] PROGRESS Observed: 06/05/2017 Status: COMPLETED Source: [facility] [place] 9:14 AM [facility] REPOSITORY HNO ID: [id number] Author: Cleo Nunez Rdms Service: (none) Author Type: (none) Type: Progress Notes Filed: 06/05/2017 10:02 AM Note Text: Radiology Service Progress Note PATIENT NAME: Juan Yañez DATE OF SERVICE: June 05, 2017 TIME: 9:14 AM PATIENT IDENTITY VERIFICATION COMPLETED USING TWO (2) METHODS: Patient confirmed name verbally and Date of . PATIENT GENDER DATA: Female. status: : No status: NO. 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 Juan Yañez presents today for IUD insertion for menstrual dysfunction. Patient's last menstrual period was 05/26/2017. GC/chlamydia: Not done: no risk factors and/or patient declines screening test: negative Side effects including irregular bleeding were discussed with the patient. She understands that it should be removed in 5 years or sooner if she desires a . IUD source: office provided IUD lot #: [id number] Exp date: 09/2019 UNIVERSAL PROTOCOL / SAFETY CHECKLIST Procedure to be performed: Mirena insertion Sign in Communication: Completed Time Out: Team Confirms the Correct Patient, Correct Procedure, Correct Site and Site Marking, Correct Position (if applicable), Prep and Dry Time (if applicable). Time: 1231 Affirmation of Time Out: YES Sign Out Discussion: Completed The uterus sounded to 7 cm and the uterus is Anteverted.. After prepping the cervix with betadine and using sterile technique, the Mirena IUD was inserted without difficulty and the string was cut to 2cm from the external os of the cervix. Patient tolerated procedure well. PLAN: Patient was advised to observe for signs and symptoms of infection including but not limited to fever, malodorous vaginal discharge and/or pain. She was told to check the string monthly for accurate placement. Bleeding expectations were reviewed. Follow up in one month. DENISE SADLER CNP PROGRESS Observed: 05/21/2017 Status: COMPLETED Source: [facility] [place] 9:25 AM [facility] REPOSITORY HNO ID: [id number] Author: Denise Le Service: (none) Author Type: (none) Type: Progress Notes Filed: 05/21/2017 9:26 AM Note Text: Pap logged Denise Singleton Psr CNCO Observed: 05/21/2017 Status: COMPLETED Source: [facility] [place] 12:00 AM [facility] REPOSITORY Letter Text Denise Sadler CNP [facility] [address] [place], [place] [address] [place] [id number] 05/21/2017 [facility] #: [id number] Dear Juan, This letter is to inform you that your pap smear has come back showing ASCUS which stands for atypical squamous cells of undetermined significance. Basically, this is another way of telling you that your pap showed some abnormal cells. This is of minimal concern as a lot of times some of these cells can be caused by an inflammation of your cervix, recent intercourse, a recent period, or a recent or present vaginal bacterial or fungal infection. Your HPV results, a tool we also use to screen for cervical cancer, came back negative (normal). I would just like to repeat your pap in 3 years but it is still important that you return for your yearly ROW BOSS exams. We appreciate your confidence in choosing the [facility] for your medical care and we look forward to seeing you at your next appointment. Please feel free to call us if you have any questions regarding your test results at the phone number above. Sincerely, Denise Sadler CNP HPV W/GENOTYPE Collected: 05/13/2017 Status: F Source: [facility] [place] 10:13 AM [facility] REPOSITORY TYPE CODE TESTS RESULT OUT OF REFERENCE UNITS RANGE LAB HPVT16 HPV HighRisk Negative for Type 16 HPV DNA high risk type 16 by PCR. LAB HPVT18 HPV HighRisk Negative for Type 18 HPV DNA high risk type 18 by PCR. LAB HPVHRO HPV HighRisk Negative for Other HPV DNA high risk types: 31,33,35,39,45 ,51,52,56,58,5 9,66,68 by PCR. Result Comment: This test was developed and its performance characteristics determined by [facility] [place] ([facility]). It has not been cleared or approved by the FDA. [facility] is regulated under CLIA as qualified to perform high-complexity testing. This test is used for clinical purposes. It should not be regarded as inv estigational or for research. Performed By: #### HPVHRR #### [facility] [address] [place], [place] [address] CYTOLOGY Observed: 05/13/2017 Status: C Source: [facility] [place] 10:13 AM [facility] REPOSITORY ADDITIONAL PROCEDURES PRESENT ---Abnormal Pap Test - Epithelial Cell Abnormality--- Specimen originated from [facility] Specimen #: [id number] Submitting Physician: DENISE SADLER CNP SPECIMEN SUBMITTED A: CERVICAL, SCREENING, FLUID FINAL DIAGNOSIS A. CERVICAL, SCREENING, FLUID Satisfactory for interpretation. Epithelial cell abnormality. Atypical squamous cells of undetermined significance (ASC-US). Predominance of coccobacilli consistent with shift in vaginal aayush. This specimen has been analyzed by the [employer] System, an automated imaging and review system, which assists the laboratory in evaluating cells on ThinPrep Pap tests. Following automated imaging, selected horan from every slide are reviewed by a foster care social worker. Luci Lao MD (Electronic Signature) ADDITIONAL PROCEDURE(S) HUMAN PAPILLOMA VIRUS Date Ordered: 05/14/2017 Date Reported: 05/15/2017 Procedure Results and Interpretation Negative for HPV DNA high risk type 16 by PCR. Negative for HPV DNA high risk type 18 by PCR. Negative for HPV DNA high risk types: 31,33,35,39,45,51,52,56,58,59,66,68 by PCR. This test was developed and its performance characteristics determined by [facility] [place] ([facility]). It has not been cleared or approved by the FDA. [facility] is regulated under CLIA as qualified to perform high-complexity testing. This test is used for clinical purposes. It should not be regarded as investigational or for research. CLINICAL DATA ROUTINE EXAM, HPV Testing: Yes, automatic HPV patients over 30 Date of Last Menstrual Period: 04/22/2017 STAINS A: CERVICAL, SCREENING, FLUID THIN PREP ROW BOSS Date of Report: 05/20/2017 Date of Procedure: 05/13/2017 Date of Receipt: 05/14/2017 Submitted by: DENISE SADLER CNP Location: [facility] Diagnostic interpretation performed at [facility], [address] [place] [address]. The Pap Smear is a screening test for cervical cancer. False negative results occur with all screening tests, emphasizing the need for rescreening at recommended intervals, and clinical correlation. PROGRESS Observed: 05/13/2017 Status: COMPLETED Source: [facility] [place] 9:41 AM [facility] REPOSITORY HNO ID: [id number] Author: Denise Sadler Service: (none) Author Type: Nurse Practitioner Type: Progress Notes Filed: 05/13/2017 10:17 AM Note Text: Juan Yañez is a 36 year old who presents for her annual gynecologic exam with complaints, heavy bleeding. Has had heavy periods for years and would like to try something to decrease flow. Menses: cycles every 28-30 days and 5 days of flow. 4 days of heavy bleeding and then 1 day of spotting. Using Poise pads. Passes clots, some quarter-size Contraception: condoms HPV vaccine: No Last Pap: 2010 normal HPV: negative History of abnormal pap: No Last mammogram: 02/10 - lump left breast benign, fatty tissue Sexually active: Yes History of STDS: None Patient concerns for STD exposure: No. 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 Seatbelt use: Yes Obstetric History T0 L1 SAB0 TAB0 Ectopic0 Multiple0 Live Births1 PAST MEDICAL HISTORY Diagnosis Date - Depression - UTI (urinary tract infection) - Varicella without mention of complication AGE 4 Chickenpox PAST SURGICAL HISTORY Procedure Laterality Date - EXTRACTION ERUPTED TOOTH/EXR 07/10/03 - KNEE ARTHROSCOPY left knee cyst removal - ORAL SURGERY PROCEDURE 08/2012 - REMOVAL OF TONSILS,<12 Y/O Tonsillectomy FAMILY HISTORY Problem Relation Age of Onset - Alcohol/Drug Mother - Arthritis Mother - Emphysema Mother - Colon Cancer Maternal Grandfather SOCIAL HISTORY Social History Substance Use Topics - Smoking status: Current Every Day Smoker Packs/day: 1.00 Years: 17.00 Types: Cigarettes Start date: 04/27/1996 Last attempt to quit: 08/02/2014 - Smokeless tobacco: Never Used Comment: sometimes 1 ppd - Alcohol use No REVIEW OF SYSTEMS Abdomen: No abdominal pain, nausea, vomiting, diarrhea, or constipation. No bloating, early satiety, indigestion, or increased flatulence. Bladder: No dysuria, gross hematuria, urinary frequency, urinary urgency, or incontinence. Breast: No breast lumps, nipple d/c, overlying skin changes, redness or skin retraction. No history clotting disorders, DVT, migraine with aura. Smokes 1ppd. Allergies and current medication updated:Yes EXAM: BP 100/60 Ht 5' 3.5 (1.61m) Wt 143 lb 12.8 oz (65.2kg) LMP 04/22/2017 BMI 25.07 kg/(m2). GENERAL: pleasant, female in no apparent distress HEENT: Normocephalic, atraumatic, mucus membranes moist and no lesions NECK: Supple, full range of motion, no adenopathy and thyroid normal DERMATOLOGY: Normal, without lesions, non-icteric and non-hirsute BREAST: soft, non-tender, symmetric, no dominant mass, normal nipple-areolar complex, no lymphadenopathy and no nipple discharge CHEST: Normal inspiratory effort ABDOMEN: soft, non-tender and no masses PELVIC: external genitalia normal, normal Bartholin's glands, urethra, [place]'s glands, no vulvar lesions, no cervical lesions, good vaginal support, physiologic discharge present, normal appearing perineal body and perianal region BIMANUAL: uterus normal size, shape and consistency, no adnexal masses and non-tender RECTOVAGINAL: deferred. NEURO: alert and oriented x3,exam grossly non-focal EXTREMITIES: normal ASSESSMENT/PLAN: 1) Health maintenance: Pap done with HPV. Nutrition, exercise and routine health maintenance exams reviewed. Calcium/Vitamin D supplementation information provided. Smoking cessation: Smoking cessation encouraged. 2) Contraception: condoms. Contraceptive options reviewed and information provided. 3. Menorrhagia with regular cycle - ICD9: 626.2, ICD10: N92.0 Normal pelvic US 04/2015 R/B/A discussed. Will pre-certify Mirena IUD for contraception and heavy menstrual bleeding. Cytotec NSAID prior to insertion - INSERT INTRAUTERINE DEVICE 4) STD screening: Declined STD check. 5) Follow up one year or sooner as needed DENISE SADLER CNP CNOV Observed: 05/13/2017 Status: COMPLETED Source: [facility] [place] 9:30 AM [facility] REPOSITORY Office Visit (WOOB) JUAN YAÑEZ ([id number]) 1980 F Date Time Provider Department 05/13/17 9:30 AM DENISE SADLER (KEV) WOOB During your visit today, we recorded the following information about you: Blood pressure Weight Height Last Period 100/60 65.2 kg 1.613 m 12/27/17 DENISE SADLER CNP 05/13/2017 10:17 AM Signed Juan Yañez is a 36 year old who presents for her annual gynecologic exam with complaints, heavy bleeding. Has had heavy periods for years and would like to try something to decrease flow. Menses: cycles every 28-30 days and 5 days of flow. 4 days of heavy bleeding and then 1 day of spotting. Using Poise pads. Passes clots, some quarter-size Contraception: condoms HPV vaccine: No Last Pap: 2010 normal HPV: negative History of abnormal pap: No Last mammogram: 02/10 - lump left breast benign, fatty tissue Sexually active: Yes History of STDS: None Patient concerns for STD exposure: No. 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 Seatbelt use: Yes Obstetric History T0 L1 SAB0 TAB0 Ectopic0 Multiple0 Live Births1 PAST MEDICAL HISTORY Diagnosis Date - Depression - UTI (urinary tract infection) - Varicella without mention of complication AGE 4 Chickenpox PAST SURGICAL HISTORY Procedure Laterality Date - EXTRACTION ERUPTED TOOTH/EXR 07/10/03 - KNEE ARTHROSCOPY left knee cyst removal - ORAL SURGERY PROCEDURE 08/2012 - REMOVAL OF TONSILS,ANDlt;11 Y/O Tonsillectomy FAMILY HISTORY Problem Relation Age of Onset - Alcohol/Drug Mother - Arthritis Mother - Emphysema Mother - Colon Cancer Maternal Grandfather SOCIAL HISTORY Social History Substance Use Topics - Smoking status: Current Every Day Smoker Packs/day: 1.00 Years: 17.00 Types: Cigarettes Start date: 04/27/1996 Last attempt to quit: 08/02/2014 - Smokeless tobacco: Never Used Comment: sometimes 1 ppd - Alcohol use No REVIEW OF SYSTEMS Abdomen: No abdominal pain, nausea, vomiting, diarrhea, or constipation. No bloating, early satiety, indigestion, or increased flatulence. Bladder: No dysuria, gross hematuria, urinary frequency, urinary urgency, or incontinence. Breast: No breast lumps, nipple d/c, overlying skin changes, redness or skin retraction. No history clotting disorders, DVT, migraine with aura. Smokes 1ppd. Allergies and current medication updated:Yes EXAM: BP 100/60 Ht 5' 3.5ANDquot; (1.61m) Wt 143 lb 12.8 oz (65.2kg) LMP 04/22/2017 BMI 25.07 kg/(m2). GENERAL: pleasant, female in no apparent distress HEENT: Normocephalic, atraumatic, mucus membranes moist and no lesions NECK: Supple, full range of motion, no adenopathy and thyroid normal DERMATOLOGY: Normal, without lesions, non-icteric and non-hirsute BREAST: soft, non-tender, symmetric, no dominant mass, normal nipple-areolar complex, no lymphadenopathy and no nipple discharge CHEST: Normal inspiratory effort ABDOMEN: soft, non-tender and no masses PELVIC: external genitalia normal, normal Bartholin's glands, urethra, [place]'s glands, no vulvar lesions, no cervical lesions, good vaginal support, physiologic discharge present, normal appearing perineal body and perianal region BIMANUAL: uterus normal size, shape and consistency, no adnexal masses and non-tender RECTOVAGINAL: deferred. NEURO: alert and oriented x3,exam grossly non-focal EXTREMITIES: normal ASSESSMENT/PLAN: 1) Health maintenance: Pap done with HPV. Nutrition, exercise and routine health maintenance exams reviewed. Calcium/Vitamin D supplementation information provided. Smoking cessation: Smoking cessation encouraged. 2) Contraception: condoms. Contraceptive options reviewed and information provided. 3. Menorrhagia with regular cycle - ICD9: 626.2, ICD10: N92.0 Normal pelvic US 04/2015 R/B/A discussed. Will pre-certify Mirena IUD for contraception and heavy menstrual bleeding. Cytotec NSAID prior to insertion - INSERT INTRAUTERINE DEVICE 4) STD screening: Declined STD check. 5) Follow up one year or sooner as needed DENISE SADLER CNP Referring Provider: SELF [200] Allergies As of Date: 05/13/2017 (No Known Allergies) Date Reviewed: 05/13/2017 Reviewed by: Denise Sadler - Fully Assessed Reason for Visit: Yearly Exam [187] Primary Visit Diagnosis:Encounter for gynecological examination (general) (routine) without abnormal findings [Z01.419] Other Visit Diagnoses:Screening for cervical cancer [Z12.4] Encounter for screening for human papillomavirus (HPV) [Z11.51] Menorrhagia with regular cycle [N92.0] Order(s):PAP FLUID CERVICAL SCREENING [7124662] Order #: [id number] INSERT INTRAUTERINE DEVICE [[id number]] Order #: [id number] miSOPROStol (CYTOTEC) 200 mcg tabletInsert 2 tablets vaginally night prior to procedure and 2 tablets morning of procedure.Disp: 4 tabletRfl: 0 Prescriptions as of 05/13/2017 Sig: MISOPROSTOL 200 MCG TABLET Insert 2 tablets vaginally ni* MULTI-VITAMIN ORAL Take by mouth. Problem List As Of Date 05/13/2017 Noted Resolved Supervision of other high-risk [O09.8*INVALID FOR*05/20/2010 General counseling for prescription of oral con*INVALID FOR*10/05/2012 Anxiety and depression [F41.8] INVALID FOR* Fatigue [R53.83] INVALID FOR* Irregular bleeding [N92.6] INVALID FOR* Prescriptions ordered this encounter Disp Refills Start End MISOPROSTOL 200 MCG TABLET 4 ta* 0 05/13/2017 Sig: Insert 2 tablets vaginally night prior to procedure and 2 tablets morning of procedure. Disposition: Return in 1 year (on 05/13/2018) for Annual Exam. Follow-up and Disposition History Recorded Encounter Status:Closed by DENISE SADLER on 05/13/17 ALLERGIES ALLERGIES DATE TYPE / CODE NAME / CODE REACTION SEVERITY SOURCE 03/28/2018 Drug No Known Unknown [facility] Allergy/416 Allergies/J99080 [facility] 799161(SNOM 0388(RXNORM) Repository ED CT) Drug NO KNOWN [facility] Class/13857 ALLERGIES [facility] [place] 1003(SNOMED Repository CT) ENCOUNTERS ENCOUNTERS ADMIT/DISCHARGE ACCOUNT ADMITTING ENCOUNTER LOCATION SOURCE NUMBER CLASS 04/09/2018/04/09/20 [id number] Ambulatory [address] [place] Repository 04/09/2018/04/13/20 [id number] Ambulatory [address] [place] Repository 04/02/2018/04/06/20 [id number] Ambulatory [address] [place] Repository 03/30/2018/03/31/20 [id number] Ambulatory [address] [place] Repository 03/28/2018/03/29/20 [id number] Ambulatory [address] ing:WPOUTRoom Repository : [id number] 02/22/2018/02/24/20 [id number] Ambulatory [place] [facility] [place] Repository 02/16/2018/02/18/20 [id number] Ambulatory [place] [facility] [place] Repository 02/16/2018/02/17/20 [id number] Ambulatory [place] 18 [facility] ing:WPOUTRoom Repository : WP013 01/21/2018/01/22/20 [id number] Ambulatory [place] 18 [facility] [place] Repository 01/21/2018/01/23/20 [id number] Ambulatory [place] 18 [facility] [place] Repository 01/21/2018/01/23/20 [id number] Ambulatory [place] 18 [facility] [place] Repository 01/06/2018/01/08/20 [id number] Ambulatory [place] 18 [facility] [place] Repository 01/06/2018/01/09/20 [id number] Ambulatory [address] [place] Repository 12/23/2017/12/24/19 [id number] Ambulatory [address] [place] Repository 12/23/2017/01/15/20 [id number] Ambulatory [address] [place] Repository 12/23/2017/12/25/19 [id number] Ambulatory [address] [place] Repository 12/01/2017/12/03/19 [id number] Ambulatory [address] [place] Repository 11/29/2017/11/30/19 [id number] Emergency [place] [address] [place] [address] ing:ED Repository 11/20/2017/11/24/19 [id number] Ambulatory [address] [place] Repository 11/18/2017/11/19/19 [id number] Emergency [place] [address] [place] [address] ing:ED Repository 06/11/2017/06/15/19 [id number] Ambulatory [address] [place] Repository 06/05/2017/06/05/19 [id number] Ambulatory [address] [place] Repository 05/28/2017/06/01/19 [id number] Ambulatory [address] [place] Repository 05/13/2017/05/14/19 [id number] Ambulatory [address] [place] Repository PAYERS PAYERS ENCOUNTER GUARANTOR PAYER SUBSCRIBER SOURCE 03/28/2018 JUAN Denise Primary JUAN [id number] HIGH Insurance:CARESOURCEP PERKINSDOB: Community STREAR [employer] [place]: [id number] [id number] Repository 45240Zjz: (330) Date:2018-03-28P O [phone] () [address]ATTN: [place] [address]DW: 03/28/2018 Secondary NOT GIVENUNK Charles Insurance:SELF PAY [facility] Number: Effective Repository Date:2018-03-28 02/16/2018 JUAN D Primary JUAN D [place] [id number] HIGH Insurance:CARESOURCEP PERKINSDOB: [facility]ly [facility] STREAR [facility] Number: [id number] [id number] Repository [address]Sol: [phone]) Date:2018-02-16P O [phone] () [address]ATTN: [place] [address]VU: 02/16/2018 Secondary NOT GIVENUNK [place] Insurance:SELF PAY [facility] Number: Effective Repository Date:2018-02-16 11/29/2017 Juan D Primary Juan D Charles [id number] HIGH Insurance:CARESOURCEP PerkinsDOB: [facility] Number: [id number], [place] [id number] Repository [address]Qhu: ([phone]) Date:2017-11-29P O [phone] () [address]ATTN: [place] [address]FQ: 11/29/2017 Secondary NOT GIVENUNK [place] Insurance:SELF PAY [facility] Number: Effective Repository Date:2017-11-29 11/18/2017 Juan D Primary Juan D Charles [id number] HIGH Insurance:CARESOURCEP PerkinsDOB: Formerly [facility]AR [facility] Number: [id number], [place] [id number] Repository [address]Eus: ([phone]) Date:2017-11-18P O [phone] () [address]ATTN: [place] [address]WN: 11/18/2017 Secondary NOT GIVENUNK [place] Insurance:SELF PAY [facility] Number: Effective Repository Date:2017-11-18
== END 2018-03-29 02:35 | disposition home or self-care (01) ==
LOC: WPOUT 23:29 → WP 23:30
PROVIDERS: Family Provider Student in an Organized Health Care Education/Training Program; PCP Student in an Organized Health Care Education/Training Program; Referring Provider Advanced Practice Midwife; Visit Provider Advanced Practice Midwife
DX: O47.02 False labor before 37 completed weeks of gestation, second trimester (principal); Z3A.26 26 weeks gestation of pregnancy
CPT/HCPCS: 96360; 36415; 59025; 59050; 81002; 82731; 85025; 87086; 87088; 99218; J7120; G0378

== ENCOUNTER 2018-06-11 06:55 | Outpatient (CLI) | payer MEDICAID, SELFPAY ==
[2018-06-11 07:52] VITALS: BMI 31.3
[2018-06-11 08:33] LABS: Color, Urine Yellow (Yellow); Glucose, Dipstick Normal (Normal); Ketone-Dipstick Negative (Negative); Leukocyte Esterase-Dipstick 100 /ul (Negative); Mucous, Urine 0 SEEN /hpf (<or=2+); Nitrite-Dipstick Negative (Negative); Occult Blood-Urine Negative /ul (Negative); Protein-Dipstick Negative (Negative); Red Blood Cells-Urine 0 SEEN /hpf (0-5); Urine Bilirubin Dipstick Negative (Negative); Urine Clarity Sl. Cloudy (Clear); Urine Urobilinogen Normal (Normal); Urine pH 6.5 (5.0 - 8.0)
[2018-06-11 08:49] LABS: Bacteria 1+ /hpf (None Seen); Squamous Epithelial Cells - UA 5-10 SEEN /hpf (5-10); White Blood Cells 0-5 SEEN /hpf (0-5)
[2018-06-11 08:58] LABS: Hematocrit 41.3 % (37-47); Mean Corp Hgb Conc 33.9 g/gl (32-36); Mean Corpuscular Hgb 30.8 pg (27.0-32.0); Mean Platelet Vol. 9.8 fl (6.2-12.0); Platelet Count 288 K/mm3 (150-450); RBC Distribution Width CV 13.2 % (11.6-14.6); RBC Distribution Width SD 43.1 fl (35.1-43.9); Red Blood Count 4.54 M/mm3 (4.2-5.4); Scan Indicated on CBC? Y/N NO; White Blood Count 13.1 K/mm3 (4.4-11.0)
[2018-06-11] MEDS: Lactated Ringers 1,000 ML 50 ML IV ×2 (09:10→09:47)
[2018-06-11] MEDS: Nalbuphine 10 MG/ML Ampul IV (10:52)
--- NOTE | 2018-06-11 12:39 | PCM.HP.OB ---
- Problem List (1) Advanced maternal age during in third trimester Status: Chronic (2) GBS bacteriuria Status: Acute (3) Marijuana use Status: Chronic (4) Rh negative status during in third trimester Status: Chronic (5) History of depression Status: Chronic History Date of Admission: 06/11/18 Final ANGELITO: 06/30/18 Final ANGELITO Source: US <20 weeks Gestational age: 37 Weeks and 2 Days History of this : This is a 37 year-old, G [2], P [1], at 37 weeks gestational age presenting to triage reporting regular and strong ctx after getting off of work this morning. Patient denies VB, LOF. Reports +FM. Patient reports a hx of PTB at 35+5 weeks with her first child without complications and is known GBS positive. Allergies No Known Allergies Allergy (Verified 06/11/18 07:53) Home Medications: Home Medications Vits [Prenatabs FA] 1 tablet PO DAILY 02/16/18 Acetaminophen [Tylenol Extra Strength] 500 - 1,000 mg PO Q6H PRN PRN 06/11/18 Famotidine [Pepcid] 20 mg PO DAILY 06/11/18 Smoking Status: Current every day smoker Alcohol: None Substance Use Type: Marijuana Number of Fetus(es): 1 Heart Tracing: Baseline 125, moderate variability, + accels, no decels TOCO Analysis: Initially q 2-3 minutes, palpating mild to moderate in strength. Now contractions irregular q 6-8 minutes apart palpating mild. Few moderately strong to palpation. History Past Pregnancies: Past Pregnancies Delivery Date Name GA/Weeks Outcome Route Weight Infant Gender Labor Length Anesthesia Delivery Location Provider FOB 2010 35+5 (PPROM) Live M Epidural Labs: O neg, Abs Neg, Syphilis NR, Rubella NON-IMMUNE, HepBsAg Neg, HIV NR, + urine tox for marijuana, GC/CT Neg/Neg, Urine Culture <10,000 GBS, Expected Infant Delivery Method: Spontaneous Vaginal Describe any other labor & delivery plans:: Epidural Number of Visits: >8 Review of Systems Constitutional: Denies: Chills, Fever, Weight Change HEENT: Denies: Head Aches, Sinus Congestion, Sinus Drainage Cardiovascular: Denies: Chest Pain, Palpitations Respiratory: Denies: Cough, Shortness of breath at rest, Sputum production Gastrointestinal: Denies: Nausea, Vomiting Genitourinary: Reports: - - pressure and contractions while urinating Gynecological: Denies: Vaginal bleeding, Vaginal discharge Musculoskeletal: Denies: Joint Pain, Joint Tenderness Skin: Denies: Rash, Wounds Neurological: Denies: Numbness, Tingling, Focal weakness Psychiatric: Denies: Anxiety, Depression, Homicidal Ideations, Suicidal Ideations Hematologic/ Lymphatic: Denies: Easy Bruising, Easy Bleeding Physical Exam Vitals: See nursing note for vitals - normotensive and afebrile General: Alert, Oriented x3, Cooperative HEENT: Atraumatic, Normocephalic Cardiovascular: Regular rate, Regular Rhythm Lungs: Normal air movement Abdomen: Soft, Non Tender, Appropriate for Gestational Age Extremities:: No edema Neurological: Cranial nerves II-XII grossly intact, Deep Tendon Reflexes 2+/4 and Symmetrical 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 False Labor P: 1) Patient was admitted d/t hx of PTB with previous and known GBS bactiuria to initiate GBS prophylaxis in case labor continued to active phase 2) No cervical change noted since this morning - patient has been resting and is comfortable. contractions have spaced out and patient is less painful. 3) Will monitor patient for 1-2 more hours but if contractions continue to space out will discharge patient to home with presumption that this is false labor 4) If discharged, review labor precautions. Patient is able to have work excuse this weekend as labor seems imminent and she may be in early labor. 5) Dr. Montalvo back-up physician notified and is in agreement with plan of care. [place] LOZANO
[2018-06-11 12:49] LABS: Amphetamine Urine VISTA NEGATIVE (<1000 ng/mL); Barbiturate Urine VISTA NEGATIVE (< 200 ng/mL); Benzodiazepine Urine VISTA NEGATIVE (< 200 ng/mL); Cocaine Urine VISTA NEGATIVE (< 300 ng/mL); Ecstacy Urine VISTA NEGATIVE (< 500 ng/mL); Methadone Urine VISTA NEGATIVE (< 300 ng/mL); PCP Urine VISTA NEGATIVE (< 25 ng/mL); THC Urine VISTA NEGATIVE (< 50 ng/mL); Vista UDS pH Range 6
== END 2018-06-11 14:50 | disposition home or self-care (01) ==
LOC: WPOUT 07:20 → WP 08:34
PROVIDERS: Family Provider Student in an Organized Health Care Education/Training Program; PCP Student in an Organized Health Care Education/Training Program; Referring Provider Obstetrics & Gynecology; Visit Provider Obstetrics & Gynecology
DX: O99.820 Streptococcus B carrier state complicating pregnancy (principal); R82.71 Bacteriuria; O09.523 Supervision of elderly multigravida, third trimester; Z3A.37 37 weeks gestation of pregnancy
CPT/HCPCS: 96365; 96367; 96376; 36415; 59025; 59050; 80307; 81001; 85027; 86850; 86900; 99218; J7120; G0378

== ENCOUNTER 2018-06-14 06:30 | Outpatient (CLI) | payer MEDICAID, SELFPAY ==
[2018-06-14 07:15] VITALS: BMI 30.8
--- NOTE | 2018-06-15 12:50 | OB.TRI.NOTE ---
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 Patient reports that the baby is usually really active but that the baby has only been doing little shifts. Patient denies any LOF, VB or any other symptoms. Patient denies any regular contractions or abdominal cramping. Allergies No Known Allergies Allergy (Verified 06/11/18 07:53) Review of Systems Constitutional: Denies: Chills, Fever, Weight Change HEENT: Denies: Head Aches, Sinus Congestion, Sinus Drainage Cardiovascular: Denies: Chest Pain, Palpitations Respiratory: Denies: Cough, Shortness of Breath, Shortness of breath at rest, Sputum production Gastrointestinal: Denies: Abdominal Pain, Nausea, Vomiting Genitourinary: Denies: Dysuria Gynecological: Denies: Vaginal bleeding, Vaginal discharge Musculoskeletal: Denies: Joint Pain, Joint Tenderness Skin: Denies: Rash, Wounds Neurological: Denies: Numbness, Tingling, Focal weakness Psychiatric: Denies: Anxiety, Depression, Homicidal Ideations, Suicidal Ideations Hematologic/ Lymphatic: Denies: Easy Bruising, Easy Bleeding Physical Exam Vitals: See nursing note - Normotensive, Afebrile General: Alert, Oriented x3, No apparent distress HEENT: Atraumatic, Normocephalic. 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 Negative for: Vulvar lesions Estimated gestational size: Appropriate for gestational size Presentation: Cephalic NST - FHR Rate Baby A Baseline: 125 Variability:: Moderate Accelerations:: 15 x 15 Decelerations:: None NST Reactive:: Yes, Appropriate for gestational age FHR Category:: Category I Uterine Activity:: Uterine irritability noted on tocometer, mildly palpable Impression/Plan 37 y/o, 37+ week gestation, Decreased Movement - Category I FHT P: 1) During monitoring, patient started to feel an increase in movement. Reassurance provided 2) Discharge to home, labor and [facility] precautions reviewed Flores LOZANO
--- NOTE | 2018-06-15 12:56 | OB.TRI.HP_ITS ---
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 Patient reports that the baby is usually really active but that the baby has only been doing little shifts. Patient denies any LOF, VB or any other symptoms. Patient denies any regular contractions or abdominal cramping. Allergies No Known Allergies Allergy (Verified 06/11/18 07:53) Review of Systems Constitutional: Denies: Chills, Fever, Weight Change HEENT: Denies: Head Aches, Sinus Congestion, Sinus Drainage Cardiovascular: Denies: Chest Pain, Palpitations Respiratory: Denies: Cough, Shortness of Breath, Shortness of breath at rest, Sputum production Gastrointestinal: Denies: Abdominal Pain, Nausea, Vomiting Genitourinary: Denies: Dysuria Gynecological: Denies: Vaginal bleeding, Vaginal discharge Musculoskeletal: Denies: Joint Pain, Joint Tenderness Skin: Denies: Rash, Wounds Neurological: Denies: Numbness, Tingling, Focal weakness Psychiatric: Denies: Anxiety, Depression, Homicidal Ideations, Suicidal Ideations Hematologic/ Lymphatic: Denies: Easy Bruising, Easy Bleeding Physical Exam Vitals: See nursing note - Normotensive, Afebrile General: Alert, Oriented x3, No apparent distress HEENT: Atraumatic, Normocephalic. 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 Negative for: Vulvar lesions Estimated gestational size: Appropriate for gestational size Presentation: Cephalic NST - FHR Rate Baby A Baseline: 125 Variability:: Moderate Accelerations:: 15 x 15 Decelerations:: None NST Reactive:: Yes, Appropriate for gestational age FHR Category:: Category I Uterine Activity:: Uterine irritability noted on tocometer, mildly palpable Impression/Plan 37 y/o, 37+ week gestation, Decreased Movement - Category I FHT P: 1) During monitoring, patient started to feel an increase in movement. Reassurance provided 2) Discharge to home, labor and [facility]KC precautions reviewed Flores LOZANO
== END 2018-06-14 11:20 | disposition home or self-care (01) ==
LOC: WPOUT 06:43 → WP 06:43
PROVIDERS: Family Provider Student in an Organized Health Care Education/Training Program; PCP Student in an Organized Health Care Education/Training Program; Referring Provider Obstetrics & Gynecology; Visit Provider Obstetrics & Gynecology
DX: O36.8130 Decreased fetal movements, third trimester, not applicable or unspecified (principal); Z3A.37 37 weeks gestation of pregnancy
CPT/HCPCS: 59025; 59050; 99218; G0378

== ENCOUNTER 2018-06-16 17:30 | Inpatient (IN) | payer MEDICAID, SELFPAY ==
[2018-06-16 17:52] VITALS: BMI 30.9
--- NOTE | 2018-06-16 18:00 | HP.PCM_ITS ---
- Problem List (1) SROM (spontaneous rupture of membranes) Status: Acute (2) Advanced maternal age during in third trimester Status: Chronic (3) GBS bacteriuria Status: Acute (4) Marijuana use Status: Chronic (5) Rh negative status during in third trimester Status: Chronic (6) History of depression Status: Chronic History Date of Admission: 06/11/18 Final ANGELITO: 06/30/18 Final ANGELITO Source: US <20 weeks Gestational age: 38 Weeks and 0 Days History of this : This is a 37 year-old, G2, P1, at 38 weeks gestational age who presents to L&D grossly ruptured. Allergies No Known Allergies Allergy (Verified 06/11/18 07:53) Home Medications: Home Medications Vits [Prenatabs FA] 1 tablet PO DAILY 02/16/18 Acetaminophen [Tylenol Extra Strength] 500 - 1,000 mg PO Q6H PRN PRN 06/11/18 Famotidine [Pepcid] 20 mg PO DAILY 06/11/18 Smoking Status: Current every day smoker Number of Fetus(es): 1 Heart Tracin/mod michael/no accels/no decels TOCO Analysis: irritability History Past Pregnancies: Past Pregnancies Delivery Date Name GA/Weeks Outcome Route Weight Gender Labor Length Anesthesia Delivery Location Provider FOB Labs: 1 hr GTT 132, antibody screen neg, rh neg, NIPT neg, syphilis NR, RI, hep B neg, HIV NR, UDS +marijuana, GC/CT neg Expected Delivery Method: Spontaneous Vaginal Review of Systems Gynecological: Reports: - - +LOF and ctx's. No VB. +FM Physical Exam General: Alert, No apparent distress HEENT: Atraumatic Lungs: - - No increased resp effort Abdomen: Soft, Gravid Extremities:: No edema Neurological: Neuro grossly intact Estimated gestational size: Appropriate for gestational size Presentation: Cephalic Cervix Dilation (cm): 5 - per o and m supervisor/Plan All Active Problems GBS bacteriuria (Acute) Decreased movement affecting management of in third trimester (Acute) SROM (spontaneous rupture of membranes) (Acute) This is a 37 year-old, G2, P1, at 38 weeks gestational age admitted with SROM and 5cm dilated. - Routine intrapartum care - UDS - Epidural - PCN for GBS pos
[2018-06-16 18:30] LABS: Hematocrit 41.6 % (37-47); Mean Corp Hgb Conc 33.7 g/gl (32-36); Mean Corpuscular Hgb 31.1 pg (27.0-32.0); Mean Corpuscular Volume 92.4 fL (81-99); Mean Platelet Vol. 9.7 fl (6.2-12.0); Platelet Count 294 K/mm3 (150-450); RBC Distribution Width CV 13.6 % (11.6-14.6); RBC Distribution Width SD 44.6 fl (35.1-43.9); White Blood Count 14.3 K/mm3 (4.4-11.0)
[2018-06-16 18:39] LABS: Scan Indicated on CBC? Y/N NO
[2018-06-16] MEDS: Oxytocin 30 units/NS 500 ml 30 UNITS/500 ML IV.SOLN 334 UNITS IV (18:47)
--- NOTE | 2018-06-16 18:58 | PCM.OB.VAG ---
- Problem List (1) SROM (spontaneous rupture of membranes) Status: Acute (2) Advanced maternal age during in third trimester Status: Chronic (3) GBS bacteriuria Status: Acute (4) Marijuana use Status: Chronic (5) Rh negative status during in third trimester Status: Chronic (6) History of depression Status: Chronic Vaginal Delivery Maternal Presentation: Active Labor, Spontaneous Rupture of Membranes Amniotic Membrane Rupture Type: Spontaneous at home Rupture of Membrane time: 5:10 pm Amniotic Fluid Description: Clear Final ANGELITO: 06/30/18 Gestational age: 38 Weeks and 0 Days Date of Procedure: 06/16/18 Pre-Operative Diagnosis: SROM, contractions at term Post-Operative Diagnosis: As above Surgery/ Procedure Performed: Spontaneous Vaginal Delivery Type of Anesthesia: None Description of Procedure: Patient had spontaneous rupture of membranes at 5:10 PM at home for clear fluid. She then began having regular contractions. She progressed quickly to complete. With 1 push the head, anterior shoulder, posterior shoulder were delivered without force or delay. A loose nuchal cord was noted. Viable male was placed on maternal abdomen. Cord was clamped and cut after 60 sec delay. Cord blood was obtained. Placenta was delivered spontaneously and noted to be intact with a three-vessel cord. There was a small periurethral abrasion that was hemostatic after pressure was applied. No perineal lacerations. EBL 250 cc. Presentation: Vertex Placental Delivery Description: Spontaneous Cord Vessel Description: 3 Vessels Nuchal Cord Compression: Without compression Cord Entanglement: Around neck x 1, loose Estimated Blood Loss: 250 A gender: Male Laceration: None Medications given after delivery: IV Pitocin Complications: None
[2018-06-16 19:03] LABS: Amphetamine Urine VISTA NEGATIVE (<1000 ng/mL); Barbiturate Urine VISTA NEGATIVE (< 200 ng/mL); Benzodiazepine Urine VISTA NEGATIVE (< 200 ng/mL); Cocaine Urine VISTA NEGATIVE (< 300 ng/mL); Ecstacy Urine VISTA NEGATIVE (< 500 ng/mL); Methadone Urine VISTA NEGATIVE (< 300 ng/mL); PCP Urine VISTA NEGATIVE (< 25 ng/mL); THC Urine VISTA NEGATIVE (< 50 ng/mL); Vista UDS pH Range 6
[2018-06-16] MEDS: Oxytocin 30 units/NS 500 ml 30 UNITS/500 ML IV.SOLN 167 UNITS IV (19:20)
--- NOTE | 2018-06-16 19:22 | NURSING ---
precip delivery unable to get epidural placed.
[2018-06-16] MEDS: Ibuprofen 600 MG Tablet PO (20:07)
[2018-06-16] MEDS: 0.9% Saline Lock 10 ML Syringe IV (21:31)
[2018-06-16 21:52] VITALS: BP 122/59; PULSE 97; RESP 20; TEMP 36.9
[2018-06-16 23:22] VITALS: BP 107/64; PULSE 107; RESP 16; TEMP 36.9
[2018-06-17] MEDS: Acetaminophen 500 MG Tablet 1000 MG PO (03:27)
[2018-06-17 03:47] VITALS: BP 110/62; PULSE 91; RESP 14; TEMP 36.9
--- NOTE | 2018-06-17 07:34 | PCM.PN.OB ---
Patient Problems: Active and Suspected Problems SROM (spontaneous rupture of membranes) (Acute) Subjective: Is doing well this morning. She is breast and bottle feeding. She has been ambulating without difficulty. Spontaneously voiding without difficulty. Tolerating regular diet without nausea or vomiting. Lochia is normal. She denies lightheadedness, dizziness, chest pain, shortness of breath, leg pain. - Physical Exam General: Alert, No apparent distress HEENT: Atraumatic Lungs: - - No increased resp effort Abdomen: Soft, Non Tender, - - FF@U-1 Extremities: No edema, No Calf Tenderness Skin: No rashes Neurological: Neuro grossly intact Psych/Mental Status: Normal Affect, Appropriate Vital Signs Temp Pulse Resp BP 98.5 F 91 14 110/62 06/17/18 03:47 06/17/18 03:47 06/17/18 03:47 06/17/18 03:47 Oxygen Delivery Method Room Air Weight: 180 lb 9.6 oz Body Mass Index (BMI) 30.9 Intake and Output for Last 24 Hours 06/15/18 06/16/18 06/17/18 23:59 23:59 23:59 Output Total 250 / 250 400 / 400 Balance -250 / -250 -400 / -400 Laboratory Tests Past 24 Hrs 06/16/18 06/16/18 06/16/18 18:00 18:15 18:15 WBC 14.3 H RBC 4.50 Hgb 14.0 Hct 41.6 MCV 92.4 MCH 31.1 MCHC 33.7 RDW 13.6 RDW Differential 44.6 H Plt Count 294 MPV 9.7 Urine Opiates Screen NEGATIVE Urine Methadone Screen NEGATIVE Ur Barbiturates Screen NEGATIVE Ur Phencyclidine Scrn NEGATIVE Ur Amphetamines Screen NEGATIVE U Methamphetamin-MDMA NEGATIVE U Benzodiazepines Scrn NEGATIVE Urine Cocaine Screen NEGATIVE U Cannabinoids Screen NEGATIVE Ur Drug Screen Comment Blood Type O NEGATIVE Antibody Screen NEGATIVE Medical Necessity - Tobacco Use Smoking Status: Current every day smoker Assessment/Plan All Active Problems GBS bacteriuria (Acute) Decreased movement affecting management of in third trimester (Acute) SROM (spontaneous rupture of membranes) (Acute) PPD#1 s/p - Doing well - Breast and bottle feeding - PPBC: Desires depo prior to discharge home, and then a tubal ligation - Dispo: Routine care
[2018-06-17 08:00] VITALS: BP 118/63; PULSE 80; RESP 16; TEMP 36.9
[2018-06-17] MEDS: Ibuprofen 600 MG Tablet PO ×2 (09:09→17:25)
[2018-06-17 11:34] VITALS: BP 122/53; PULSE 88; RESP 16; TEMP 37.2
--- NOTE | 2018-06-17 12:41 | NURSING ---
Report given to Marsha Gomez RN. She will assume care of patient at this time.
[2018-06-17 16:00] VITALS: BP 106/63; PULSE 91; RESP 12; TEMP 36.6
[2018-06-17 19:45] VITALS: BP 115/71; PULSE 83; RESP 18; TEMP 36.9
[2018-06-18] MEDS: Acetaminophen 500 MG Tablet 1000 MG PO (00:32)
[2018-06-18 02:50] VITALS: BP 115/51; PULSE 90; RESP 18; TEMP 36.8
--- NOTE | 2018-06-18 07:41 | PCM.PN.OB ---
Patient Problems: Active and Suspected Problems SROM (spontaneous rupture of membranes) (Acute) Subjective: Patient is doing well this morning and feels ready to go home. Ambulating and spontaneously voiding without difficulty. Tolerating a regular diet without N/V. Lochia is decreasing. She denies lightheadedness, chest pain, shortness of breath, leg pain. - Physical Exam General: Alert, No apparent distress HEENT: Atraumatic Lungs: - - No increased resp effort Abdomen: Soft, Non Tender, - - FF Extremities: No edema Skin: No rashes Neurological: Neuro grossly intact Psych/Mental Status: Normal Affect, Appropriate Vital Signs Temp Pulse Resp BP 98.2 F 90 18 115/51 L 06/18/18 02:50 06/18/18 02:50 06/18/18 02:50 06/18/18 02:50 Oxygen Delivery Method Room Air Weight: 180 lb 9.6 oz Body Mass Index (BMI) 30.9 Intake and Output for Last 24 Hours 06/16/18 06/17/18 06/18/18 23:59 23:59 23:59 Output Total 250 / 250 700 / 700 Balance -250 / -250 -700 / -700 Medical Necessity - Tobacco Use Smoking Status: Current every day smoker Assessment/Plan All Active Problems GBS bacteriuria (Acute) Decreased movement affecting management of in third trimester (Acute) SROM (spontaneous rupture of membranes) (Acute) PPD#2 s/p - Doing well - Depo shot today - Dispo: D/c home today. Reviewed follow up
--- NOTE | 2018-06-18 07:45 | DCINST_ITS ---
Discharge Diet: No Restrictions Discharge Activity: Return to Normal Activity, May Shower May resume sexual activity in: 4-6 weeks Weight Bearing Status: Full weight bearing Lifting Restrictions: None Call your doctor if you observe: Fever of 101 or Higher, Inability to urinate, Inability to have a bowel movement, Using more than one pad per hour, Shortness of breath, Dizziness, Chest pain, Increased palpitations (irregular heartbeat), Calf discomfort, Uncontrolled pain Instructions: After a Vaginal Additional Instructions: If you experience any of the following, contact your healthcare provider. * Bleeding that soaks a pad every hour for 2 hours * Fever 100.4 or higher * Unrelieved incision or abdominal pain * Swelling, redness, discharge or bleeding from your incision or episiotomy site * Your incision begins to separate * Problems urinating (including inability to urinate or burning while urinating). * Visual changes * Severe headache * Flu-like symptoms * Pain or redness in one of both of your breasts * Pain, warmth, tenderness or swelling in your legs, especially the calf area * Frequent nausea and vomiting * Symptoms of depression or anxiety If you experience any of the following, call 911 or go to the nearest Emergency Room. * Chest pain * Problems breathing * Seizure activity * Partial or complete paralysis of a body part, slurred speech, weakness or drooping of the face, or a sudden inability to walk or hold your balance Allergies/Adverse Reactions: Allergies No Known Allergies Allergy (Verified 06/11/18 07:53) Medications to take at Discharge Vits [Prenatabs FA] 1 tablet PO DAILY 02/16/18 Acetaminophen [Tylenol Extra Strength] 500 - 1,000 mg PO Q6H PRN PRN 06/11/18 Famotidine [Pepcid] 20 mg PO DAILY 06/11/18 Please Follow Up With: Tran Sena DO When: 4-6 weeks for visit Primary Care Physician: Orestes Lincoln DO [Primary Care Provider] - Test Results: Test results from this visit will be discussed in further detail at your follow- up appointment, if applicable.
[2018-06-18] MEDS: MedroxyPROGESTERone 150 MG/ML Syringe IM (08:11)
[2018-06-18 08:20] VITALS: BP 112/61; PULSE 83; RESP 16; TEMP 36.6
[2018-06-18] MEDS: Ibuprofen 600 MG Tablet PO (08:25)
--- NOTE | 2018-06-18 14:22 | CASEMGMT ---
Addendum entered and electronically signed by Liliya Shepherd 06/21/18 12:22: Reviewed and approve BLEACH MACHINE OPERATOR student documentation below. -JERICHO Goff, WRISTER Original Note: Social Work Labor and Delivery Referral date:06/16/2018 Referral time: 2351 Referred by: Dr. Sue Woodruff Date of Intervention: 06/18/2018 Time of Intervention: 10am Reason for Referral: history of depression and anxiety. Marijuana use. History obtained from: medical record, mother of baby (MOB) Odalys Scott, Father of baby Alan Weathers (FOB) Household composition: MOB is living with FOB and MOB's 8 year old child South Abdalla. FOB's 16 year old child spends occasional weekends in the home. MOB reports no domestic violence history or safety concerns. Patient's parent/guardian status: FOB has one other child from previous relationship. MOB has one other child from previous relationship. MOB has full custody and father of South has visitation but lives roughly 50 miles away. Medical History: MOB is G2:1 to 2 after of baby Gary Weathers. GUANAKITO's care began at 9 weeks. Gary was born 17 days early on 06/16/18 at 5lbs 13oz with scores of 8 and 9. Educational Status: GUANAKITO has high school education. Financial Status: GUANAKITO works at [employer] and FOB works at [employer] in [place]. Infant Supplies: MOB reports to have car seat, crib, bassinet, clothing, diapers, wipes, and breast pump. Childcare/Caregiver(s): MOB plans to be primary caregiver. FOB will also be caregiver. MOB's mother will be supplemental caregiver. Transportation: MOB and FOB did not report any issues with transportation as they both drive. Programs/Agencies Involved: MOB is connected with [employer] for food stamps and healthcare. MOB also used WIC with first child and will be using WIC again. MOB declined [facility] referral. Children Services/Legal Issues: MOB denied any history of children services for self and FOB. Behavioral Health Issues: Mental Health History: MOB diagnosed with anxiety, depression, and PPD. MOB reported to have PPD with of South. MOB was prescribed 4 separate medications until finding right one and chose to stop on own after South was an older age and MOB felt fine. MOB reported to have had a suicide attempt as a teenager by usage of pills. MOB reports no suicidal thoughts or attempts since incident. Substance Abuse History: MOB reports to use marijuana approximately one time a month. MOB expressed marijuana usage was only here and there to relax. MOB's last use of marijuana was admitted to be 06/11. MOB does not drink. MOB reports to not use any substances. Family History: MOB reported maternal mother to have previous history with alcohol abuse. Drug Screens: Positive drug screen for marijuana on 12/01/17. Negative drug screen on 06/16/18. Family/Social Stressors: MOB did not report any current stressors. Support Systems: MOB reports FOB to be main support. MOB's mother and cousin are also supports. Depression/Shaken Baby/Safe Sleeping: MOB and FOB and social work resident intern reviewed safe sleeping, shaken baby, and PPD. PPD packet information reviewed and provided. ASSESSMENT: MOB and FOB both in room with baby at start of consult. MOB and FOB were calm. FOB and MOB responded appropriately to questions asked. FOB became irritated when asked to leave room and as evidenced by passive aggressive comments. FOB left room calmly. MOB provided information about FOB's mood as FOB was dissatisfied with the birthing process. FOB's negative feelings surrounded MOB not receiving any pain management medication during labor and nursing staff having trouble inserting an IV. MOB reported no history of abuse or domestic violence. MOB confirmed to be feeling good about kaye Vega. When speaking about PPD history, MOB reported that medications did not work very well and that was reason for trying 4 different prescriptions. MOB informed social work resident intern that had positive feelings throughout and did not experience depression. MOB's previous suicide attempt was during teenage years and MOB explained no plans to do it again as it was miserable feeling the chalk in my throat MOB reported to cope with feelings of anxiety by taking a walk or smoking a cigarette. MOB explained that any feelings of depression/PPD would be tended to with call to FOB and doctor. MOB used sparingly throughout . MOB confirmed to have safety plan of no longer using marijuana. MOB feels comfortable and confident going home as 8 year old son is excited and mother who is MOB's best friend will be providing support. MOB's mother has history of alcohol abuse but has since quit and only has a beer sometimes. MOB seems to be happily bonding with baby Gary. PLAN: MOB to go home with baby. Social work resident intern to complete children services referral. -Ananya Blanco, BLEACH MACHINE OPERATOR Student [employer].
--- NOTE | 2018-06-21 12:22 | CASEMGMT ---
Social Work Labor and Delivery Clarification for previous note: [facility] resources packet provided at time of assessment. [facility] Services was securely called at [phone] to provide intake information to [facility] for exposure to illegal substance in utero. No other services indicated or requested at this time. -Ananya Blanco, PIGMENT GRINDER Student Glycerine Plant Operator.
== END 2018-06-18 11:20 | disposition home or self-care (01) | DRG 560 ==
PROVIDERS: Admitting Provider Obstetrics & Gynecology; Family Provider Student in an Organized Health Care Education/Training Program; PCP Student in an Organized Health Care Education/Training Program; Referring Provider Obstetrics & Gynecology; Visit Provider Obstetrics & Gynecology
DX: O99.824 Streptococcus B carrier state complicating childbirth (principal); R82.71 Bacteriuria; O69.81X0 Labor and delivery complicated by cord around neck, without compression, not applicable or unspecified; O36.8130 Decreased fetal movements, third trimester, not applicable or unspecified; Z3A.39 39 weeks gestation of pregnancy; Z37.0 Single live birth
CPT/HCPCS: 59025; 59050; 80307; 85027; 86850; 86900; 99218; A4216; G0378

== ENCOUNTER 2021-03-19 13:33 | Emergency (ER) | payer MEDICAID, SELFPAY ==
[2021-03-19 13:34] VITALS: BP 151/88; PULSE 96; RESP 18; TEMP 36.2; O2SAT 100; BMI 28.3
[2021-03-19] MEDS: Lidocaine 1% (20 ml mdv) 20 ML Vial INFILT (14:11)
--- NOTE | 2021-03-19 14:12 | EX.ED.DYSGE1 ---
HPI History of Present Illness Chief Complaint: Other, Pain/Inj Informant: patient Narrative Narrative: 40-year-old female presents with a tongue laceration. She states that she went to the dentist today had a procedure performed and left her with her tongue partially numbed. She went out to eat and ended up biting her tongue. She states she was not able to get to stop bleeding. PFSH PFSH Medical History Smoker Home Medications vit,[id number] [Prenatabs FA] 1 tab PO DAILY 02/16/18 [History Last Taken 06/16/18 09:00] acetaminophen 500 - 1,000 mg PO Q6H PRN PRN 06/11/18 [History Last Taken 06/16/18 15:00] famotidine 20 mg PO DAILY 06/11/18 [History Last Taken 06/16/18 09:00] Allergy/AdvReac Type Severity Reaction Status Date / Time No Known Allergies Allergy Verified 03/19/21 13:36 Social History (Updated 03/19/21 @ 14:[address] Pj Ordonez, DO) current gender identity: female Smoking Status: Current every day smoker tobacco type: cigarettes ROS ROS ED Constitutional Constitutional ED: Reports fever(s); Denies chills or weight loss Eyes Eyes: Denies change in vision or diplopia ENT ENT ED: Reports other Details: See HPI ; Denies ear pain, rhinorrhea or sore throat Cardiovascular Cardiovascular: Denies chest pain, orthopnea, palpitations or racing heartbeat Respiratory/Chest Respiratory/Chest: Denies cough, dyspnea or orthopnea Gastrointestinal Gastrointestinal: Denies abdominal pain, diarrhea, nausea or vomiting Genitourinary Genitourinary ED: Denies dysuria, hematuria or urinary frequency Musculoskeletal Musculoskeletal: Denies arthralgias or myalgias Integumentary Denies abscess or rash Neurologic Neurologic: Denies headache(s) or weakness Psychiatric Psychiatric: Denies anxiety, depression, suicidal ideation or suicidal thoughts Endocrine Endocrinology: Denies polydipsia, polyphagia or polyuria Allergic/Immunologic Allergic/Immunologic ED: Denies mouth swelling, tongue swelling or urticaria EXAM Physical Exam Const Vital Signs: 03/19/21 13:34 Temperature 97.1 F L Temperature Source Temporal Pulse Rate 96 Respiratory Rate 18 Blood Pressure 151/88 H Blood Pressure Mean 109 Pulse Ox 100 Oxygen Delivery Method Room Air Positive well nourished and well developed General Appearance ED: well developed HEENT Reports normocephalic, head/scalp atraumatic, TM's clear and moist mucous membranes HEENT Narrative: There is a 1.5 cm linear laceration to the tongue. It does gape. trauma Tympanic Membrane ED: Yes TM's clear Eyes PERRL and EOMs intact bilaterally Neck no lymphadenopathy, supple and no JVD Resp normal respiratory effort and clear to auscultation bilaterally Cardio regular rate, regular rhythm and no murmurs GI normal to inspection, nondistended, normoactive bowel sounds and non-tender Palpation: soft Back/Spine no CVA tenderness and normal ROM Extremity normal to inspection General Extremety ED: Negative for edema General Extremity: Negative for edema Neuro oriented x3 and CN's II-XII intact bilaterally Sensorium / Orientation: alert Motor Exam: strength 5/5 throughout Psych mental status grossly normal Mood & Affect: Negative for depressed or tearful Skin no rashes or lesions noted and no wounds MDM MDM MDM Narrative Medical decision making narrative: The wound was locally anesthetized using 1% lidocaine. Wound was explored. No particulate matter was seen. It was closed using a total of 3 simple interrupted 4-0 Vicryl sutures. Wound care discussed with the patient. Follow-up as needed return if worsening or concerns Discharge Plan Triage Chief Complaint: Other, Pain/Inj ED Provider: Pj Ordonez Dx/Rx/DC Orders Clinical Impression: Laceration of tongue Instructions: ED Laceration, Lip or Mouth Prescriptions: No Action Prenatabs FA 1 TABLET tablet 1 tab PO DAILY RF: 0 acetaminophen 500 MG tablet 500 - 1,000 mg PO Q6H PRN PRN (Reason: Mild Pain (1-07/04)) RF: 0 famotidine 20 MG tablet 20 mg PO DAILY RF: 0 Primary Care Provider: Orestes Lincoln Referrals: Orestes Lincoln DO [Primary Care Provider] - As Needed Disposition Disposition: Home, Self Care
[2021-03-19 14:23] VITALS: BP 137/92; PULSE 91; RESP 19; O2SAT 98
== END 2021-03-19 14:24 | disposition home or self-care (01) ==
PROVIDERS: Emergency Provider Emergency Medicine; PCP Student in an Organized Health Care Education/Training Program
DX: S01.512A Laceration without foreign body of oral cavity, initial encounter (principal); F17.210 Nicotine dependence, cigarettes, uncomplicated; X58.XXXA Exposure to other specified factors, initial encounter; Y93.9 Activity, unspecified; Y92.9 Unspecified place or not applicable; Y99.9 Unspecified external cause status
CPT/HCPCS: 41250; 99282

== ENCOUNTER 2022-01-14 08:03 | Emergency (ER) | payer MEDICAID, SELFPAY ==
[2022-01-14 08:04] VITALS: BP 150/94; PULSE 97; RESP 18; TEMP 36.6; O2SAT 100; BMI 31.8
--- NOTE | 2022-01-14 08:58 | EX.ED.DYSGE1 ---
HPI History of Present Illness Chief Complaint: Other, Pain/Inj Informant: patient Narrative Narrative: Patient is a 41-year-old female present with 1 week of right-sided neck and shoulder pain. She states she has the pain radiates down into her arm and she gets tingling in all of her fingers. She been trying multiple xhib-sal-frltnok treatments including ice, heat, ibuprofen and topical creams such as icy hot with no relief. 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 She denies any vision changes, trauma or specific injuries. Denies any history of this. States that it is especially hard for her to lift up a gallon of milk. She is right-hand dominant. No other complaints at this time. PFSH PFSH Medical History Smoker Home Medications vits,calcium no.78-iron fumarate-folic acid 29 mg-1 mg tablet (Prenatabs FA) 1 tab PO DAILY 02/16/18 [History Last Taken 06/16/18 09:00] acetaminophen 500 mg tablet 500 - 1,000 mg PO Q6H PRN PRN Mild Pain (1-3/10) 06/11/18 [History Last Taken 06/16/18 15:00] famotidine 20 mg tablet 20 mg PO DAILY heartburn 06/11/18 [History Last Taken 06/16/18 09:00] penicillin V potassium 500 mg tablet 500 mg PO 4X/DAY #20 tabs 03/19/21 [Rx Last Taken Unknown] cyclobenzaprine 10 mg tablet 10 mg PO TID PRN muscle spasm #20 tabs 01/14/22 [Rx Last Taken Unknown] ibuprofen 600 mg tablet 600 mg PO Q6H PRN PRN Pain Score 1-10/10 #20 tabs 01/14/22 [Rx Last Taken Unknown] Allergy/AdvReac Type Severity Reaction Status Date / Time No Known Allergies Allergy Verified 01/14/22 08:07 Social History Smoking Status: Current every day smoker tobacco type: cigarettes ROS ROS ED Constitutional Constitutional ED: Denies chills or fever(s) Eyes Eyes: Denies blurry vision or change in vision ENT ENT ED: Denies rhinorrhea or sore throat Cardiovascular Cardiovascular: Denies chest pain Respiratory/Chest Respiratory/Chest: Denies cough Gastrointestinal Gastrointestinal: Denies abdominal pain or nausea Musculoskeletal Musculoskeletal: Reports myalgias and neck pain Integumentary Denies rash Neurologic Neurologic: Reports paresthesias; Denies headache(s) or weakness Psychiatric Psychiatric: Denies anxiety EXAM Physical Exam Const Vital Signs: 01/14/22 08:04 01/14/22 08:12 Temperature 97.9 F Temperature Source Temporal Pulse Rate 97 Respiratory Rate 18 Respiratory Pattern Normal Blood Pressure 150/94 H Blood Pressure Mean 112 Pulse Ox 100 Oxygen Delivery Method Room Air Positive well nourished and well developed General Appearance ED: well developed and NAD HEENT Reports moist mucous membranes Negative for trauma Eyes PERRL and EOMs intact bilaterally Neck supple Neck Narrative: Tenderness palpation at the right paraspinal region as well as the insertion of the trapezius muscle, normal range of motion, no torticollis. No nuchal rigidity. Chest Wall inspection of chest normal and palpation of chest normal Resp normal respiratory effort and clear to auscultation bilaterally Cardio regular rate, regular rhythm and no murmurs Cardio Narrative: 2+ bilateral radial pulses GI non-distended Extremity normal to inspection Extremity Narrative: No deformity. Range of motion intact in the shoulder however patient has pain with flexion of the arm. No pinpoint bony tenderness. Strength and sensation intact in all dermatomes. General Extremety ED: Negative for edema General Extremity: Negative for edema Neuro oriented x3 and no sensory deficits noted Motor Exam: strength 5/5 throughout Psych mental status grossly normal Skin no rashes or lesions noted and no wounds MDM MDM MDM Narrative Medical decision making narrative: Patient is evaluated for right-sided neck pain that goes into her posterior shoulder area. Is consistent with muscle spasm. She has some tingling her fingers likely with a secondary radiculopathy from the muscle spasm. Overall patient is well-appearing. Vital signs are significant only for mild hypertension. Patient drove here. Should be started on Flexeril but also given ibuprofen and Tylenol in the ER. Counseled follow-up with primary care doctor. No bony tenderness I do not think imaging is indicated at this time. Counseled on return precautions. She verbalized agreement to this plan. Discharged home in stable condition. Discharge Plan Triage Chief Complaint: Other, Pain/Inj ED Provider: Dolores Harrington Dx/Rx/DC Orders Clinical Impression: Neck pain on right side, Trapezius muscle spasm, Paresthesias in right hand Instructions: ED Neck Spasm, No Trauma Prescriptions: New ibuprofen 600 mg tablet 600 mg PO Q6H PRN PRN (Reason: Pain Score 1-10/10) Qty: 20 0RF cyclobenzaprine 10 mg tablet 10 mg PO TID PRN (Reason: muscle spasm) Qty: 20 0RF No Action Prenatabs FA 1 TABLET tablet 1 tab PO DAILY acetaminophen 500 MG tablet 500 - 1,000 mg PO Q6H PRN PRN (Reason: Mild Pain (1-310)) famotidine 20 MG tablet 20 mg PO DAILY penicillin V potassium 500 MG tablet 500 mg PO 4X/DAY Qty: 20 0RF Primary Care Provider: Orestes Lincoln Referrals: Orestes Lincoln DO [Primary Care Provider] - Disposition Disposition: Home, Self Care
[2022-01-14] MEDS: Ibuprofen 600 MG Tablet PO (09:03)
[2022-01-14] MEDS: Acetaminophen 325 MG Tablet 650 MG PO (09:03)
== END 2022-01-14 09:27 | disposition home or self-care (01) ==
PROVIDERS: Emergency Provider Emergency Medicine; PCP Student in an Organized Health Care Education/Training Program; Visit Provider Emergency Medicine
DX: M54.2 Cervicalgia (principal); M62.838 Other muscle spasm; R20.2 Paresthesia of skin; I10 Essential (primary) hypertension; M25.519 Pain in unspecified shoulder; F17.200 Nicotine dependence, unspecified, uncomplicated
CPT/HCPCS: 99283

== ENCOUNTER 2022-05-17 12:13 | Emergency (ER) | payer MEDICAID, SELFPAY ==
[2022-05-17 12:13] VITALS: BP 140/85; PULSE 112; RESP 20; TEMP 36.4; O2SAT 100; BMI 28.3
[2022-05-17 13:31] LABS: Red Blood Cells-Urine 0 SEEN /hpf (0-5)
[2022-05-17 13:37] LABS: Absolute Lymphocyte Count 2.74 X10^3/uL (0.83-4.51); Absolute Neutrophil Count 5.3 X10^3/uL (2.0-7.7); Basophil# 0.08 X10^3/uL; Basophil% 0.9 % (0-1); Eosinophil# 0.06 X10^3/uL; Eosinophils% 0.7 % (0-5); Hematocrit 41.7 % (37-47); Hemoglobin 13.8 g/dL (12.0-15.0); Internal QC Validated? YES +Cl - CLEAR BKGD; Lymphocyte # 2.74 X10^3/ul (0.83-4.51); Lymphocyte % 30.7 % (19-41); Mean Corp Hgb Conc 33.1 g/dL (32-36); Mean Corpuscular Hgb 29.4 pg (27.0-32.0); Mean Corpuscular Volume 88.7 fL (81-99); Monocyte# 0.69 X10^3/uL; Monocyte% 7.7 % (0-10); NRBC Flagged by Analyzer 0 % (0-5); Neutrophil # 5.34 X10^3/uL (2.7-7.7); Neutrophil % 59.8 % (47-70); Platelet Count 301 K/mm3 (150-450); Pregnancy, Serum, hCG Quali. NEGATIVE Negative; RBC Distribution Width CV 12.5 % (11.6-14.6); White Blood Count 8.9 K/mm3 (4.4-11.0)
[2022-05-17 13:39] LABS: Color, Urine Yellow (Yellow); Glucose, Dipstick Normal (Normal); Ketone-Dipstick 5 mg/dl (Negative); Leukocyte Esterase-Dipstick 25 /ul (Negative); Nitrite-Dipstick Negative (Negative); Occult Blood-Urine 250 /ul (Negative); Protein-Dipstick 30 mg/dl (Negative); Urine Bilirubin Dipstick Negative (Negative); Urine Clarity Clear (Clear); Urine Urobilinogen 4 mg/dl (Normal)
[2022-05-17 13:47] LABS: Anion Gap 3 (5-15); BUN 13 mg/dL (7-18); BUN/Creat Ratio 20.7 RATIO (10-20); Calcium,Total 9.6 mg/dL (8.5-10.1); Chloride 111 mmol/L (98-107); Creatinine, Serum 0.63 mg/dL (0.55-1.02); EST Glomerular Filtration Rate 110 mL/min (>60); Est Glom Filt Rate - Afr Amer 133 mL/min (>60); Estimated Creatinine Clearance 96.23 ml/min; Glucose 99 mg/dL (74-106); Potassium 3.5 mmol/L (3.5-5.1); Sodium Level 141 mmol/L (136-145)
[2022-05-17 13:56] LABS: Bacteria RARE /hpf (None Seen); Mucous, Urine 1+ /hpf (<or=2+); Squamous Epithelial Cells - UA 0-5 SEEN /hpf (5-10); White Blood Cells 0-5 SEEN /hpf (0-5)
--- NOTE | 2022-05-17 14:23 | CT_ITS ---
EXAM: CT ABDOMEN AND PELVIS WITHOUT INTRAVENOUS CONTRAST CLINICAL INDICATION: flank pain--LEFT TECHNIQUE: Helically acquired images were obtained of the abdomen and pelvis without intravenous contrast. This CT exam was performed using one or more of the following dose reduction techniques: automated exposure control, adjustment of the mA and/or kV according to patient size, and/or use of iterative reconstruction technique. This report was created using [employer] report generation technology. COMPARISON: None. FINDINGS: LOWER THORAX: Normal. Lung bases are clear. No cardiomegaly. No pericardial effusion. ABDOMEN: LIVER: Normal. Homogeneous. GALLBLADDER AND BILE DUCTS: Gallbladder is contracted suggestive of a nonfasting state. No calcified gallstones. No gallbladder distention or wall edema. No intra- or extrahepatic biliary ductal dilation. PANCREAS: Normal. No focal cystic mass. SPLEEN: Normal. Normal size without focal cystic or solid mass. ADRENALS: Normal. No nodules. KIDNEYS AND URETERS: A 4 mm stone noted at the left UP junction associated with mild left hydronephrosis. No intrarenal stone. STOMACH AND BOWEL: Normal. No bowel distention. No focal inflammatory change. PELVIS: APPENDIX: Appendix is visualized and normal in appearance. BLADDER: Normal. REPRODUCTIVE: Unremarkable as visualized. No mass. ABDOMEN and PELVIS: INTRAPERITONEAL SPACE: Normal. No ascites or other fluid collection. No free air. BONES/JOINTS: Normal. No suspicious lytic or blastic abnormality. SOFT TISSUES: Normal. No discrete abdominal or pelvic wall hernia. VASCULATURE: Normal. Abdominal aorta is non-dilated. LYMPH NODES: Normal. No enlarged lymph nodes. CT/Abdomen/Pelvis without Cont IMPRESSION: 4 mm left ureteropelvic junction stone with mild left hydronephrosis. Electronically Signed: Danie Mann MD at 15:00 EST ,
[2022-05-17] MEDS: Ketorolac 15 MG/ML Vial IV (15:34)
--- NOTE | 2022-05-17 16:04 | EDS_ITS ---
HPI HPI - Female History of Present Illness Chief Complaint: Abd Pain Narrative Narrative: 41-year-old female presenting with left flank pain. This started about 5 days ago. Patient has history of UTIs and kidney stones. Patient states that it feels similar. She noticed that her urine is darker than usual. She has history of UTIs as well. Patient has associated nausea. No fevers or chills. PFSH PFSH Medical History Smoker Home Medications vits,calcium no.78-iron fumarate-folic acid 29 mg-1 mg tablet (Prenatabs FA) 1 tab PO DAILY 02/16/18 [History Last Taken 06/16/18 09:00] acetaminophen 500 mg tablet 500 - 1,000 mg PO Q6H PRN PRN Mild Pain (1-3/10) 06/11/18 [History Last Taken 06/16/18 15:00] famotidine 20 mg tablet 20 mg PO DAILY heartburn 06/11/18 [History Last Taken 06/16/18 09:00] penicillin V potassium 500 mg tablet 500 mg PO 4X/DAY #20 tabs 03/19/21 [Rx Last Taken Unknown] cyclobenzaprine 10 mg tablet 10 mg PO TID PRN muscle spasm #20 tabs 01/14/22 [Rx Last Taken Unknown] ibuprofen 600 mg tablet 600 mg PO Q6H PRN PRN Pain Score 1-10/10 #20 tabs 01/14/22 [Rx Last Taken Unknown] hydrocodone-acetaminophen 5-325mg 5mg-325mg 1 tab PO Q6H PRN pain 3 days #12 tabs 05/17/22 [Rx Last Taken Unknown] ondansetron 4 mg disintegrating tablet 4 mg PO Q8H PRN nausea and vomiting #14 tabs 05/17/22 [Rx Last Taken Unknown] Allergy/AdvReac Type Severity Reaction Status Date / Time No Known Allergies Allergy Verified 05/17/22 12:15 Social History Smoking Status: Current every day smoker tobacco type: cigarettes ROS ROS ED Constitutional Constitutional ED: Denies chills, fever(s) or sweats Eyes Eyes: Denies blurry vision or change in vision ENT ENT ED: Denies ear pain or sore throat Cardiovascular Cardiovascular: Denies chest pain, palpitations or racing heartbeat Respiratory/Chest Respiratory/Chest: Denies cough, dyspnea or sputum Gastrointestinal Gastrointestinal: Reports abdominal pain and nausea; Denies constipation, diarrhea or vomiting Genitourinary Genitourinary ED: Denies dysuria, hematuria or urinary frequency Musculoskeletal Musculoskeletal: Reports other Details: Left flank pain ; Denies arthralgias, myalgias or neck pain Integumentary Denies abscess, Abrasions or rash Neurologic Neurologic: Denies headache(s), paresthesias or weakness Psychiatric Psychiatric: Denies anxiety, depression, suicidal ideation or suicidal thoughts Endocrine Endocrinology: Denies polydipsia or polyuria EXAM Physical Exam Const Vital Signs: 05/17/22 12:13 Temperature 97.5 F L Temperature Source Temporal Pulse Rate 112 H Respiratory Rate 20 H Blood Pressure 140/85 H Blood Pressure Mean 103 Pulse Ox 100 Oxygen Delivery Method Room Air Positive well nourished and obese General Appearance ED: NAD Nutritional Appearance: obese HEENT Reports moist mucous membranes and dry mucous membranes Mouth ED: Yes dry mucous membranes Mouth: dry mucous membranes Eyes PERRL and EOMs intact bilaterally Neck no lymphadenopathy Chest Wall inspection of chest normal and palpation of chest normal Resp normal respiratory effort and clear to auscultation bilaterally Auscultation: Negative for rales, rhonchi or wheezes Cardio regular rate and regular rhythm GI Palpation: tender LLQ Back/Spine General Back: CVA tenderness left Neuro oriented x3 and CN's II-XII intact bilaterally Sensorium / Orientation: alert Motor Exam: strength 5/5 throughout Psych mental status grossly normal Skin no rashes or lesions noted MDM MDM MDM Narrative Medical decision making narrative: KidneyPatient seen and evaluated on arrival for left flank pain. Differential at this point is UTI, pyelonephritis, ureteral stone, ovarian cyst, ovarian torsion, ectopic , diverticulitis. Patient does have a history of kidney stones, UTI, pyelonephritis as well. CBC was obtained to assess with differential which was essentially normal. BMP to assess for renal function, electrolytes, glucose as well as anion gap. Renal function electrolytes were normal. hCG to rule out or ectopic . This was negative. Urinalysis negative for infection but does show occult blood. Patient was medicated with Toradol and Zofran. She was taken for CT of the abdomen pelvis without contrast which was positive for a 4 mm UVJ stone with mild left-sided hydronephrosis. Patient given prescription for [place], Zofran for home. She is given follow-up with urology. Return precautions are discussed. Impression: 1. Hematuria 2. 4 mm UVJ stone 3. Nausea/vomiting 4. Left-sided hydronephrosis Lab Data Attestation: I reviewed the patient's lab results. Labs: Laboratory Results - last 24 hr 05/17/22 05/17/22 05/17/22 13:22 13:22 13:22 WBC 8.9 RBC 4.70 Hgb 13.8 Hct 41.7 MCV 88.7 MCH 29.4 MCHC 33.1 RDW Std Deviation 41.0 RDW Coeff of [place] 12.5 Plt Count 301 MPV 9.0 Immature Gran % (Auto) 0.200 Neut % (Auto) 59.8 Lymph % (Auto) 30.7 Taylor % (Auto) 7.7 Eos % (Auto) 0.7 Baso % (Auto) 0.9 Absolute Neuts (auto) 5.3 Absolute Lymphs (auto) 2.74 Nucleated RBC % 0 Sodium 141 Potassium 3.5 Chloride 111 H Carbon Dioxide 27.0 Anion Gap 3 L BUN 13 Creatinine 0.63 Estim Creat Clear Calc 96.23 Est GFR (MDRD) Af Amer 133 Est GFR (MDRD) Non-Af 110 BUN/Creatinine Ratio 20.7 H Glucose 99 Calcium 9.6 Serum , Qual NEGATIVE Urine Color Urine Clarity Urine pH Ur Specific [place] Urine Protein Urine Glucose (UA) Urine Ketones Urine Occult Blood Urine Nitrite Urine Bilirubin Urine Urobilinogen Ur Leukocyte Esterase Urine RBC Urine WBC Ur Squamous Epith Cells Urine Bacteria Urine Mucus 05/17/22 13:22 WBC RBC Hgb Hct MCV MCH MCHC RDW Std Deviation RDW Coeff of [place] Plt Count MPV Immature Gran % (Auto) Neut % (Auto) Lymph % (Auto) Taylor % (Auto) Eos % (Auto) Baso % (Auto) Absolute Neuts (auto) Absolute Lymphs (auto) Nucleated RBC % Sodium Potassium Chloride Carbon Dioxide Anion Gap BUN Creatinine Estim Creat Clear Calc Est GFR (MDRD) Af Amer Est GFR (MDRD) Non-Af BUN/Creatinine Ratio Glucose Calcium Serum , Qual Urine Color Yellow Urine Clarity Clear Urine pH 5.0 Ur Specific [place] 1.020 Urine Protein 30 H Urine Glucose (UA) Normal Urine Ketones 5 H Urine Occult Blood 250 H Urine Nitrite Negative Urine Bilirubin Negative Urine Urobilinogen 4 H Ur Leukocyte Esterase 25 H Urine RBC 0 SEEN Urine WBC 0-5 SEEN Ur Squamous Epith Cells 0-5 SEEN Urine Bacteria RARE Urine Mucus 1+ Radiography Diagnostic Testing: Clinical Impression(s) from Imaging Studies Abdomen/Pelvis CT 05/17/22 14:23 IMPRESSION: 4 mm left ureteropelvic junction stone with mild left hydronephrosis. Electronically Signed: Danie Mann MD at 15:00 EST , Discharge Plan Triage Chief Complaint: Abd Pain ED Provider: Nathaniel Bright Dx/Rx/DC Orders Instructions: ED Kidney Stone w/ Colic Prescriptions: New hydrocodone-acetaminophen 5-325 mg tablet 1 tab PO Q6H PRN (Reason: pain) 3 Days Qty: 12 0RF ondansetron 4 mg tablet,disintegrating 4 mg PO Q8H PRN (Reason: nausea and vomiting) Qty: 14 0RF No Action Prenatabs FA 1 TABLET tablet 1 tab PO DAILY acetaminophen 500 MG tablet 500 - 1,000 mg PO Q6H PRN PRN (Reason: Mild Pain (1-3/10)) famotidine 20 MG tablet 20 mg PO DAILY penicillin V potassium 500 MG tablet 500 mg PO 4X/DAY Qty: 20 0RF ibuprofen 600 mg tablet 600 mg PO Q6H PRN PRN (Reason: Pain Score 1-10/10) Qty: 20 0RF cyclobenzaprine 10 mg tablet 10 mg PO TID PRN (Reason: muscle spasm) Qty: 20 0RF Primary Care Provider: Orestes Lincoln Referrals: Coco Rhodes MD [Med Staff - Active Staff] - 3-5 Days Orestes Lincoln DO [Primary Care Provider] - Disposition Disposition: Home, Self Care Discharge Date/Time: 05/17/22 15:36
== END 2022-05-17 15:36 | disposition home or self-care (01) ==
PROVIDERS: Emergency Provider Student in an Organized Health Care Education/Training Program; PCP Student in an Organized Health Care Education/Training Program; Visit Provider Student in an Organized Health Care Education/Training Program
DX: N13.2 Hydronephrosis with renal and ureteral calculous obstruction (principal); R31.9 Hematuria, unspecified; R11.2 Nausea with vomiting, unspecified; F17.210 Nicotine dependence, cigarettes, uncomplicated; E66.9 Obesity, unspecified
CPT/HCPCS: 74176; 80048; 81001; 84703; 85025; 96374; 99283; A4216

== ENCOUNTER 2023-07-16 07:25 | Emergency (ER) | payer MEDICAID, SELFPAY ==
[2023-07-16 07:26] VITALS: BP 123/63; PULSE 70; RESP 14; TEMP 36.6; O2SAT 98; BMI 28.8
--- NOTE | 2023-07-16 07:34 | EDS_ITS ---
HPI History of Present Illness Chief Complaint: Dental Informant: patient Onset/Context/Timing Onset: Days (2) Context: Gradual Onset Timing: Continuous Quality: Pulsating, throbbing Location: Right upper molars Worsened by: Hot and cold Relieved by: - (Nothing) Associated Symptoms Assocated Symptom - Dental: face swelling, cold sensitivity and hot sensitivity; Negative for fever or jaw swelling Narrative Narrative: Patient presents with right upper dental pain that has been getting worse over the past 2 days. Patient describes her pain as throbbing and pulsating. Patient states it is over the right upper molar area. Patient states it has been constant. Patient states she has been taking Tylenol, ibuprofen, and Aleve with no improvement. Patient states her pain is worse with hot and cold. Patient thinks there may be some swelling to her right upper jaw. Patient denies any fevers or chills. Patient states that her primary care physician put her on amoxicillin and she started this yesterday. Patient states this has not helped. Patient denies any difficulty breathing or difficulty swallowing. PFSH PFSH Medical History Smoker Home Medications vits,calcium no.78-iron fumarate-folic acid 29 mg-1 mg tablet (Prenatabs FA) 1 tab PO DAILY 02/16/18 [History Last Taken 06/16/18 09:00] acetaminophen 500 mg tablet 500 - 1,000 mg PO Q6H PRN PRN Mild Pain (1-3) 06/11/18 [History Last Taken 06/16/18 15:00] famotidine 20 mg tablet 20 mg PO DAILY heartburn 06/11/18 [History Last Taken 06/16/18 09:00] penicillin V potassium 500 mg tablet 500 mg PO 4X/DAY #20 tabs 03/19/21 [Rx Last Taken Unknown] ibuprofen 600 mg tablet 600 mg PO Q6H PRN PRN Pain Score 1-10/10 #20 tabs 01/14/22 [Rx Last Taken Unknown] hydrocodone-acetaminophen 5-325mg 5mg-325mg 1 tab PO Q6H PRN pain 3 days #12 tabs 05/17/22 [Rx Last Taken Unknown] ondansetron 4 mg disintegrating tablet 4 mg PO Q8H PRN nausea and vomiting #14 tabs 05/17/22 [Rx Last Taken Unknown] tramadol 50 mg tablet 50 mg PO Q6H PRN PRN Pain 3 days #12 tabs 07/16/23 [Rx Last Taken Unknown] Allergy/AdvReac Type Severity Reaction Status Date / Time No Known Allergies Allergy Verified 07/16/23 07:25 no surgical history Social History Smoking Status: Current every day smoker tobacco type: cigarettes ROS ROS ED Constitutional Constitutional ED: Denies chills or fever(s) Eyes Eyes: Denies blurry vision or change in vision ENT ENT ED: Denies rhinorrhea or sore throat Cardiovascular Cardiovascular: Denies chest pain or palpitations Respiratory/Chest Respiratory/Chest: Denies cough or dyspnea Gastrointestinal Gastrointestinal: Denies nausea or vomiting Genitourinary Genitourinary ED: Denies dysuria or hematuria Musculoskeletal Musculoskeletal: Reports neck pain; Denies back pain Integumentary Denies abscess or rash Neurologic Neurologic: Denies headache(s) or weakness Allergic/Immunologic Allergic/Immunologic ED: Denies mouth swelling or urticaria EXAM Physical Exam Const Vital Signs: 07/16/23 07:26 Temperature 98 F Temperature Source Temporal Pulse Rate 70 Respiratory Rate 14 Blood Pressure 123/63 H Blood Pressure Mean 83 Pulse Ox 98 Oxygen Delivery Method Room Air Positive well nourished and well developed General Appearance ED: well developed and NAD HEENT HEENT Narrative: There is a large dental carry noted over the right upper first molar. There is tenderness to percussion of this tooth. There is some mild gingival edema around this tooth. There is no fluctuance. There is no discharge or drainage. There is no evidence of any abscess. There is no sublingual edema. There is no evidence of Kieran's angina. Oropharynx is clear. Airway is patent. Teeth and Gingiva: caries and gingiva abnormal Positive for gingival edema Throat: posterior oropharynx normal Neck supple and no JVD General: Negative for anterior neck swelling, tenderness or submandibular swelling Neuro oriented x3, CN's II-XII intact bilaterally, moves all extremities, no focal motor deficits and no sensory deficits noted Sensorium / Orientation: alert Motor Exam: strength 5/5 throughout Psych mental status grossly normal MDM MDM MDM Narrative Medical decision making narrative: Smoking cessation was discussed. Patient was advised that this is most likely infected dental carry. Patient was instructed to continue her amoxicillin as previously prescribed. Patient was given a prescription for a short course of t ramadol. Patient was instructed to follow-up with her dentist in 3 to 5 days. Patient was instructed to return if worse in any way. Patient understood and was agreeable with the plan. All questions were answered. Discharge Plan Triage Chief Complaint: Dental ED Provider: Eddie Schwab Dx/Rx/DC Orders Clinical Impression: Infected dental caries, Tobacco use disorder Instructions: ED Dental Pain, ED Dental Cavity Prescriptions: New tramadol 50 mg tablet 50 mg PO Q6H PRN PRN (Reason: Pain) 3 Days Qty: 12 0RF Discontinued cyclobenzaprine 10 mg tablet 10 mg PO TID PRN (Reason: muscle spasm) Qty: 20 0RF No Action Prenatabs FA 1 TABLET tablet 1 tab PO DAILY acetaminophen 500 MG tablet 500 - 1,000 mg PO Q6H PRN PRN (Reason: Mild Pain (1-3/10)) famotidine 20 MG tablet 20 mg PO DAILY penicillin V potassium 500 MG tablet 500 mg PO 4X/DAY Qty: 20 0RF ibuprofen 600 mg tablet 600 mg PO Q6H PRN PRN (Reason: Pain Score 1-10/10) Qty: 20 0RF hydrocodone-acetaminophen 5-325 mg tablet 1 tab PO Q6H PRN (Reason: pain) 3 Days Qty: 12 0RF ondansetron 4 mg tablet,disintegrating 4 mg PO Q8H PRN (Reason: nausea and vomiting) Qty: 14 0RF Primary Care Provider: Orestes Lincoln Referrals: Orestes Lincoln DO [Primary Care Provider] - 3-5 Days Dentist,Your [STAFF PHYSICIAN] - 3-5 Days Disposition Disposition: Home, Self Care
[2023-07-16 08:02] VITALS: BP 123/63; PULSE 70; RESP 14; TEMP 36.6; O2SAT 98
== END 2023-07-16 08:03 | disposition home or self-care (01) ==
LOC: ED 07:53
PROVIDERS: Emergency Provider Emergency Medicine; PCP Student in an Organized Health Care Education/Training Program; Visit Provider Emergency Medicine
DX: K02.9 Dental caries, unspecified (principal); F17.210 Nicotine dependence, cigarettes, uncomplicated; Z79.899 Other long term (current) drug therapy
CPT/HCPCS: 99282

== ENCOUNTER 2023-11-18 15:36 | Emergency (ER) | payer MEDICAID, SELFPAY ==
[2023-11-18 15:37] VITALS: BP 121/98; PULSE 78; RESP 16; TEMP 36.8; O2SAT 98; BMI 29.2
[2023-11-18 15:39] VITALS: BP 121/98; PULSE 78; RESP 16; TEMP 36.8; O2SAT 98
--- NOTE | 2023-11-18 16:02 | EDS_ITS ---
HPI History of Present Illness Chief Complaint: Dental Informant: patient Onset/Context/Timing Onset: Days Timing: Continuous Current Severity: Mild Maximum Severity: Moderate Relieved by: NSAIDs Associated Symptoms Assocated Symptom - Dental: Negative for fever Narrative Narrative: 43-year-old female no seen past medical problems. States she has had right lower dental pain for the last several days. Saw the clinic dentist yesterday. Started on antibiotic amoxicillin 5 mg 4 times a day. She has been on it for 1 day. Denies any trouble breathing or swallowing. No fever. Prior similar symptoms: Yes Recent Illness/Hospitalization: No PFSH PFSH Medical History Smoker Home Medications ?Medication ?Instructions ?Recorded ?Last Taken ?Type vits,calcium no.78-iron 1 tab PO DAILY 02/16/18 06/16/18 09:00 History fumarate-folic acid 29 mg-1 mg tablet (Prenatabs FA) acetaminophen 500 mg tablet 500 - 1,000 mg PO Q6H PRN PRN Mild 06/11/18 06/16/18 15:00 History Pain (-07/04) famotidine 20 mg tablet 20 mg PO DAILY heartburn 06/11/18 06/16/18 09:00 History penicillin V potassium 500 mg 500 mg PO 4X/DAY #20 tabs 03/19/21 Unknown Rx tablet ibuprofen 600 mg tablet 600 mg PO Q6H PRN PRN Pain Score 01/14/22 Unknown Rx -02/03 #20 tabs hydrocodone-acetaminophen 5-325mg 1 tab PO Q6H PRN pain 3 days #12 05/17/22 Unknown Rx 5mg-325mg tabs ondansetron 4 mg disintegrating 4 mg PO Q8H PRN nausea and 05/17/22 Unknown Rx tablet vomiting #14 tabs tramadol 50 mg tablet 50 mg PO Q6H PRN PRN Pain 3 days 07/16/23 Unknown Rx #12 tabs Allergy/AdvReac Type Severity Reaction Status Date / Time No Known Allergies Allergy Verified 11/18/23 15:45 Social History Smoking Status: Current every day smoker tobacco type: cigarettes ROS ROS ED ROS Narrative Denies recent illness. Dental pain. Constitutional Constitutional ED: Denies chills or fever(s) Eyes Eyes: Denies blurry vision ENT ENT ED: Denies ear pain Cardiovascular Cardiovascular: Denies chest pain Respiratory/Chest Respiratory/Chest: Denies cough or dyspnea Genitourinary Genitourinary ED: Denies dysuria Musculoskeletal Musculoskeletal: Denies arthralgias Integumentary Denies abscess Neurologic Neurologic: Denies headache(s) Psychiatric Psychiatric: Denies anxiety Endocrine Endocrinology: Denies cold intolerance Hematologic/Lymphatic Hematologic/Lymphatic: Denies easy bleeding, easy bruising or lymphadenopathy Allergic/Immunologic Allergic/Immunologic ED: Denies mouth swelling, tongue swelling or urticaria EXAM Physical Exam Narrative Exam Narrative: 43-year-old female no acute distress vital signs stable afebrile. H EENT exam right lower arm molar tender. No significant gingival swelling. No abscess. No trismus. No trouble swallowing or breathing. Face really no significant tenderness nor swelling. Neck nontender no lymphadenopathy. Lungs clear. Heart regular rhythm. Abdomen soft. Otherwise exam unremarkable. Const Vital Signs: 11/18/23 15:37 11/18/23 15:39 Temperature 98.2 F 98.2 F Temperature Source Temporal Oral Pulse Rate 78 78 Respiratory Rate 16 16 Blood Pressure 121/98 H 121/98 H Blood Pressure Mean 105 105 Pulse Ox 98 98 Oxygen Delivery Method Room Air Room Air Positive well nourished and well developed; Negative for obese, cachectic, contractures or unkempt General Appearance ED: well developed and NAD; Negative for unkempt, cachectic or contractures Nutritional Appearance: Negative for cachectic or obese HEENT HEENT Narrative: No significant swelling. No drainable abscess. No trismus. tenderness; Negative for trauma Mouth ED: Yes oral and palatal mucosa normal Mouth: oral and palatal mucosa normal Teeth and Gingiva: abnormal tooth and associated gingiva Throat: posterior oropharynx normal Eyes PERRL and EOMs intact bilaterally Neck no lymphadenopathy, supple and no JVD General: normal visual inspection Lymph Lymphatic: no lymphadenopathy noted Chest Wall inspection of chest normal and palpation of chest normal Resp normal respiratory effort, no retractions and clear to auscultation bilaterally Cardio regular rate, regular rhythm, S1 normal heart sound, S2 normal heart sound and no murmurs GI normal to inspection, nondistended, normoactive bowel sounds, non-tender, non- distended and no masses Back/Spine no CVA tenderness Extremity normal to inspection and no joint enlargement Neuro oriented x3, CN's II-XII intact bilaterally, moves all extremities and no focal motor deficits Sensorium / Orientation: alert, oriented to person, oriented to place and oriented to time Motor Exam: strength 5/5 throughout Psych mental status grossly normal Appearance: Negative for unkempt Attitude: No agitated Mood & Affect: Negative for depressed, anxious or tearful Skin no rashes or lesions noted and no wounds MDM MDM MDM Narrative Medical decision making narrative: 43-year-old female with right lower molar dental pain. There is no drainable abscess. She saw her dentist yesterday. He started on amoxicillin 4 times a day. She needs to continue that. Motrin and Tylenol for pain. And follow-up with her dentist. History & Record Review Discussion w/independent historian: Patient Additional record(s) reviewed:: Prior inpatient record, Prior outpatient record, Prior ED visit and Prior labs Discharge Plan Triage Chief Complaint: Dental ED Provider: Adonay Fitzpatrick Dx/Rx/DC Orders Clinical Impression: Pain, dental, Abscess, dental Instructions: ED Dental Pain, ED Tooth Abscess Prescriptions: No Action Prenatabs FA 1 TABLET tablet 1 tab PO DAILY acetaminophen 500 MG tablet 500 - 1,000 mg PO Q6H PRN PRN (Reason: Mild Pain (1-3/10)) famotidine 20 MG tablet 20 mg PO DAILY penicillin V potassium 500 MG tablet 500 mg PO 4X/DAY Qty: 20 0RF ibuprofen 600 mg tablet 600 mg PO Q6H PRN PRN (Reason: Pain Score 1-10/10) Qty: 20 0RF hydrocodone-acetaminophen 5-325 mg tablet 1 tab PO Q6H PRN (Reason: pain) 3 Days Qty: 12 0RF ondansetron 4 mg tablet,disintegrating 4 mg PO Q8H PRN (Reason: nausea and vomiting) Qty: 14 0RF tramadol 50 mg tablet 50 mg PO Q6H PRN PRN (Reason: Pain) 3 Days Qty: 12 0RF Primary Care Provider: Orestes Lincoln Referrals: Orestes Lincoln DO [Primary Care Provider] - [facility] [Non-Staff] - As Needed Activity Restrictions/Additional Instructions: Continue antibiotics 4 times a day the amoxicillin. Motrin and Tylenol for pain. Follow-up with your [facility] dentist as needed. Print Language: Cymraes Disposition Disposition: Home, Self Care
== END 2023-11-18 16:10 | disposition home or self-care (01) ==
PROVIDERS: Emergency Provider Emergency Medicine; PCP Student in an Organized Health Care Education/Training Program; Visit Provider Emergency Medicine
DX: K04.7 Periapical abscess without sinus (principal); F17.210 Nicotine dependence, cigarettes, uncomplicated; Z79.899 Other long term (current) drug therapy
CPT/HCPCS: 99282

== ENCOUNTER 2023-11-19 13:22 | Emergency (ER) | payer MEDICAID, SELFPAY ==
[2023-11-19 13:23] VITALS: BP 130/80; PULSE 79; RESP 16; TEMP 36.4; O2SAT 100; BMI 30.1
--- NOTE | 2023-11-19 13:50 | EDS_ITS ---
HPI History of Present Illness Chief Complaint: Dental Informant: patient Onset/Context/Timing Onset: Weeks (1) Context: Gradual Onset Timing: Continuous Quality: throbbing/ache Location: R mandib tooth Current Severity: Severe Maximum Severity: Severe Associated Symptoms Assocated Symptom - Dental: jaw swelling; Negative for fever Narrative Narrative: 43-year-old female with a history of dental issues states for the past week she has had pain and a tooth that had a root canal and May by her dentist. She states when it started getting painful 1 week ago she started and on antibiotic she came here to the ER yesterday to get a new prescription for the same, amoxicillin, because the old one she had was . She states now the swelling and pain is even worse than it was yesterday. She denies any systemic symptoms, fevers, chills, discharge, or bleeding into her mouth. PFSH PFSH Medical History Smoker Home Medications ?Medication ?Instructions ?Recorded ?Last Taken ?Type vits,calcium no.78-iron 1 tab PO DAILY 02/16/18 06/16/18 09:00 History fumarate-folic acid 29 mg-1 mg tablet (Prenatabs FA) acetaminophen 500 mg tablet 500 - 1,000 mg PO Q6H PRN PRN Mild 06/11/18 06/16/18 15:00 History Pain (-07/04) famotidine 20 mg tablet 20 mg PO DAILY heartburn 06/11/18 06/16/18 09:00 History ibuprofen 600 mg tablet 600 mg PO Q6H PRN PRN Pain Score 01/14/22 Unknown Rx -02/03 #20 tabs ondansetron 4 mg disintegrating 4 mg PO Q8H PRN nausea and 05/17/22 Unknown Rx tablet vomiting #14 tabs tramadol 50 mg tablet 50 mg PO Q6H PRN PRN Pain 3 days 07/16/23 Unknown Rx #12 tabs clindamycin HCl 300 mg capsule 300 mg PO Q6H #40 CAPSULES 11/19/23 Unknown Rx (Cleocin HCl) hydrocodone-acetaminophen 5-325mg 1 tab PO Q6H PRN pain 2 days #8 11/19/23 Unknown Rx 5mg-325mg tabs Allergy/AdvReac Type Severity Reaction Status Date / Time No Known Allergies Allergy Verified 11/19/23 13:25 Social History Smoking Status: Current every day smoker tobacco type: cigarettes ROS ROS ED Constitutional Constitutional ED: Denies chills or fever(s) Eyes Eyes: Denies change in vision or double vision ENT ENT ED: Reports dental pain; Denies sinus pain or throat swelling Cardiovascular Cardiovascular: Denies chest pain or palpitations Respiratory/Chest Respiratory/Chest: Denies cough or dyspnea Integumentary Denies abscess or rash Neurologic Neurologic: Denies headache(s), paresthesias or weakness EXAM Physical Exam Const Vital Signs: 11/19/23 13:23 Temperature 97.5 F L Temperature Source Temporal Pulse Rate 79 Respiratory Rate 16 Blood Pressure 130/80 H Blood Pressure Mean 96 Pulse Ox 100 Oxygen Delivery Method Room Air Positive well nourished and well developed General Appearance ED: well developed and NAD HEENT HEENT Narrative: Mild right mandibular swelling and tenderness, but not fluctuant or large, 1 or 2 cm across only without any external erythema. It is opposite the mildly tender tooth, approximately #28. There is no abnormality in the gingiva. There is no pointing intraorally, sublingual areas are soft and nontender nond istended, she has no submental swelling externally or no tongue elevation or trismus. Face and Sinus: sinuses nontender Throat: posterior oropharynx normal Eyes PERRL and EOMs intact bilaterally Neck no lymphadenopathy and supple Resp normal respiratory effort Neuro oriented x3 and CN's II-XII intact bilaterally Sensorium / Orientation: alert Gait (Neuro): normal gait Psych mental status grossly normal and thought process normal Skin no rashes or lesions noted and no wounds MDM MDM MDM Narrative Medical decision making narrative: There is no drainable collection here I do not think empirically trying to aspirate this would be fruitful. I think changing antibiotic is reasonable to clindamycin, she has no allergies, she is been tried amoxicillin for the last week and apparently possibly failing it. She is amenable to that plan, we discussed probiotic and/or yogurt. She states the pain is out of control despite taking Tylenol and ibuprofen throughout the day, I am amenable to giving her a short prescription for something stronger. Discharge Plan Triage Chief Complaint: Dental ED Provider: Jaime Hunter Dx/Rx/DC Orders Clinical Impression: Abscess, dental Instructions: Dental Abscess Prescriptions: New clindamycin HCl [Cleocin HCl] 300 mg capsule 300 mg PO Q6H Qty: 40 0RF Continued Prenatabs FA 1 TABLET tablet 1 tab PO DAILY acetaminophen 500 MG tablet 500 - 1,000 mg PO Q6H PRN PRN (Reason: Mild Pain (1-310)) famotidine 20 MG tablet 20 mg PO DAILY ibuprofen 600 mg tablet 600 mg PO Q6H PRN PRN (Reason: Pain Score 1-10/10) Qty: 20 0RF ondansetron 4 mg tablet,disintegrating 4 mg PO Q8H PRN (Reason: nausea and vomiting) Qty: 14 0RF tramadol 50 mg tablet 50 mg PO Q6H PRN PRN (Reason: Pain) 3 Days Qty: 12 0RF hydrocodone-acetaminophen 5-325 mg tablet 1 tab PO Q6H PRN (Reason: pain) 2 Days Qty: 8 0RF Discontinued penicillin V potassium 500 MG tablet 500 mg PO 4X/DAY Qty: 20 0RF Primary Care Provider: Orestes Lincoln Referrals: Orestes Lincoln DO [Primary Care Provider] - Dentist,Your [STAFF PHYSICIAN] - 3-5 Days Print Language: Trinidadian Disposition Disposition: Home, Self Care
[2023-11-19 14:25] VITALS: BP 128/82; PULSE 73; RESP 18; TEMP 36.8; O2SAT 97
== END 2023-11-19 14:26 | disposition home or self-care (01) ==
PROVIDERS: Emergency Provider Emergency Medicine; PCP Student in an Organized Health Care Education/Training Program; Visit Provider Emergency Medicine
DX: K04.7 Periapical abscess without sinus (principal); F17.210 Nicotine dependence, cigarettes, uncomplicated; Z79.899 Other long term (current) drug therapy
CPT/HCPCS: 99282